=== PATIENT | female | born 1955 | race Caucasian/White ===

== ENCOUNTER 2021-11-17 16:37 | Emergency (ER) | payer OTHER, SELFPAY ==
--- NOTE | ~2021-11-17 | XR_ITS ---
EXAMINATION: XR wrist LT min 3V DATE: 11/17/2021 17:18 INDICATION: Anterior distal left forearm pain post fall TECHNIQUE: Posteroanterior, ulnar deviation, oblique, and lateral views of the left wrist were obtain ed. COMPARISON: none FINDINGS: 2 mm ulnar minus variance. Alignment is otherwise normal. No fracture. Mild polyarticular osteoarthri tis involving the majority of the visualized joints at the left hand and wrist. Small amount of ather osclerotic calcific lesion along the ulnar artery. IMPRESSION: 1. 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 No acute osseous abnormality. Reviewed, dictated and finalized at location A. IMPRESSION: 1. 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 No acute osseo us abnormality.
--- NOTE | ~2021-11-17 | XR_ITS ---
EXAMINATION: XR knee RT min 4V DATE: 11/17/2021 17:18 INDICATION: Medial right knee pain post fall TECHNIQUE: Anteroposterior, 2 oblique and crosstable lateral views of the right knee were obtained COMPARISON: 12/21/2004 FINDINGS: Alignment is normal. No fracture. Mild joint space narrowing in the patellofemoral compartment with moderate-sized marginal osteophytes. Joint space in the medial and lateral compartments appear relati vely preserved but could be under estimated on nonweightbearing imaging. There are small marginal ost eophytes in both medial and lateral compartments consistent with at least mild osteoarthritis. Enthes ophytes along the anterior margin of the patella. No joint effusion/layering lipohemarthrosis. Soft t issues are unremarkable. IMPRESSION: 1. No right knee joint effusion or acute osseous abnormalities. 2. At least mild tricompartmental osteoarthritis at the right knee. Reviewed, dictated and finalized at location A.
--- NOTE | 2021-11-17 16:45 | ED.FALL ---
HPI - Fall General Chief Complaint: Extremity Injury, Lower Stated Complaint: Fall Injury Time Seen by Provider: 11/17/21 17:00 Source: patient and RN notes reviewed Mode of arrival: ambulatory Limitations: no limitations History of Present Illness HPI Narrative: 66-year-old female presents with concern for fall. She reports while at work on a concrete driveway she stepped off the edge of the driveway, turned her foot and fell onto her knee. Reports she reached out to catch herself with her hands, hurting her left wrist. She reports her glasses scraped her face, she has an abrasion to her cheek and she bit her lip. She denies any loose teeth, headache. She did not hit her head. She reports she came right here, she denies any intervention such as pain medicine or ice. MD complaint: fall Related Data Home Medications Medication Instructions Recorded Confirmed leflunomide 20 mg tablet 20 mg PO DAILY 11/17/21 11/17/21 prednisone 5 mg tablet 5 mg PO DAILY 11/17/21 11/17/21 Allergies Allergy/AdvReac Type Severity Reaction Status Date / Time iodine Allergy Intermediate Rash Verified 11/17/21 16:51 theophylline Allergy Intermediate Rash Verified 11/17/21 16:51 diphenhydramine Allergy Unknown Hives / Verified 11/17/21 16:51 Red Face hydrocodone Allergy Unknown SEVERE N/V Verified 11/17/21 16:51 terbutaline Allergy Unknown Dyspnea / Verified 11/17/21 16:51 SOB Tetracyclines Allergy Unknown Nausea and Verified 11/17/21 16:51 Vomiting ibuprofen AdvReac Unknown Muscle Verified 11/17/21 16:51 Spasms Contrast Media Allergy Unknown Swelling Uncoded 02/10/19 18:08 Review of Systems Review of Systems: CONSTITUTIONAL: Denies malaise, chills, sweats, or fever. SKIN: Reports abrasion to the right knee and left side of the face. MUSCULOSKELETAL: Reports right knee pain NEUROLOGIC: Denies numbness, weakness All systems reviewed & are unremarkable except as noted in HPI and below PMFSH Past Medical History Medical History (Updated 11/17/21 @ 17:42 by Slime Hinkle NP) Asthma Hypertension Surgical History Surgical History (Updated 04/04/19 @ 12:15 by Larissa Ramirez, STRIPING MACHINE OPERATOR, ) H/O tubal ligation H/O: hysterectomy Hx of tonsillectomy Comments At time of signature, agree with nursing past medical, surgical, social and family history. There is no relevant family history pertinent to the presenting complaint Exam Narrative: GENERAL: Well-appearing, well-nourished, and in no acute distress. HEAD: Normocephalic, atraumatic. EYES: PERRLA, conjunctivae clear NECK: Supple. CHEST: Speaks in full sentences. No respiratory distress. HEART: Regular rate and rhythm. Normal and equal peripheral pulses. EXTREMITIES: Right knee has normal grossly strength and sensation, limited range of motion. Mild edema, ecchymosis. Normal sensation with sensitivity to light touch and pain. No point tenderness. No skin tenting, no devitalized tissue or atrophy, no trophic changes, no obvious deformity, alignment normal, nearby joints and structures intact. Distal pulses palpable and equal bilaterally, skin warm, dry, pink. Capillary refill less than 3 seconds. SKIN: Warm, dry, no rash. Small superficial abrasion to the anterior knee, very superficial abrasion to the left cheek next to the nose, no surrounding erythema, edema, induration. Very small amount of edema to the inner lip without open skin, no other oral injury noted Left wrist, hand and digits of hand have normal strength and sensation. 5/5 strength with digit flexion, extension. Range of motion normal. No clubbing, cyanosis, or edema noted. Left ulnar wrist tenderness. Skin intact. Normal digital cascade with flexion of fingers, median, ulnar and radial nerve intact. Normal sensation of each side of finger. Can perform 'okay' sign, 'cross over finger test of index and middle fingers' and 'thumbs up' sign. No scissoring. Normal thumb opposition. Good capillary refill and rad
[2021-11-17 16:47] VITALS: BP 154/74; PULSE 78; RESP 16; TEMP 36.5; O2SAT 96
== END 2021-11-17 17:47 | disposition home or self-care (01) ==
PROVIDERS: Emergency Provider Nurse Practitioner; PCP Internal Medicine
DX: M25.561 Pain in right knee (principal); M25.532 Pain in left wrist; J45.909 Unspecified asthma, uncomplicated; I10 Essential (primary) hypertension
CPT/HCPCS: 73110; 73564; 99214; G0463

== ENCOUNTER 2022-03-04 17:17 | Emergency (ER) | payer OTHER, SELFPAY ==
[2022-03-04 17:26] VITALS: BP 150/64; PULSE 79; RESP 20; TEMP 36.6; O2SAT 98
--- NOTE | 2022-03-04 19:45 | ED.HA ---
HPI - Headache General Chief Complaint: Headache Stated Complaint: Blood Pressure Problem Time Seen by Provider: 03/04/22 19:49 Source: patient, RN notes reviewed and old records reviewed Mode of arrival: ambulatory Limitations: no limitations History of Present Illness HPI Narrative: 66-year-old female presents to [facility] with complaints of headache since Saturday and has taken Tylenol without relief. She went to the doctor on Saturday and was told that headache was probably related to sinuses. She states that she takes daily Claritin and Flonase and has no facial pressure or increased nasal discharge. At the doctor's office on Saturday he did have a blood pressure check and her pressure was like 150s over 90s. Patient reports and they gave her new blood pressure of Valsartan on the and she took it and slept for 10 hours straight they told her to quit taking it. She reports that she had not been on blood pressure medication for over a year. Patient reports that she has lost some weight with use of Ozempic. She reports that she also has recently completed 4 month duration of steroid use for her RA. MD elicited complaint: headache Onset (ago): day(s) (2) Onset description: gradually Location: diffuse Pain scale (0-10): 9 Treatments prior to arrival: acetaminophen Related Data Home Medications Medication Instructions Recorded Confirmed lovastatin 10 mg tablet,extended 10 mg PO DAILY 03/04/22 03/04/22 release 24 hr metformin 500 mg tablet 500 mg DAILY 03/04/22 03/04/22 semaglutide 0.25 mg or 0.5 mg (2 0.25 mg subcut WEEKLY 03/04/22 03/04/22 mg/1.5 mL) subcutaneous pen injector (Ozempic) Allergies Allergy/AdvReac Type Severity Reaction Status Date / Time iodine Allergy Intermediate Rash Verified 03/04/22 18:26 theophylline Allergy Intermediate Rash Verified 03/04/22 18:26 diphenhydramine Allergy Unknown Hives / Verified 03/04/22 18:26 Red Face hydrocodone Allergy Unknown SEVERE N/V Verified 03/04/22 18:26 terbutaline Allergy Unknown Dyspnea / Verified 03/04/22 18:26 SOB Tetracyclines Allergy Unknown Nausea and Verified 03/04/22 18:26 Vomiting ibuprofen AdvReac Unknown Muscle Verified 03/04/22 18:26 Spasms Contrast Media Allergy Unknown Swelling Uncoded 03/04/22 18:26 Review of Systems Review of Systems: CONSTITUTIONAL: Denies fever, chills, or sweats. EYES: Denies visual changes, redness, or discharge. ENT: Denies rhinorrhea, congestion, sore throat, or otalgia. CARDIOVASCULAR: Denies chest pain, palpitations, or edema. RESPIRATORY: Denies cough or dyspnea. GASTROINTESTINAL: Denies abdominal pain, nausea, vomiting, or diarrhea. GENITOURINARY: Denies dysuria or hematuria. SKIN: Denies rash or itching. MUSCULOSKELETAL: Denies back pain, joint pain, or myalgia. NEUROLOGIC: Reports diffuse headache,no numbness, or weakness, denies any dizziness PSYCHIATRIC: Denies anxiety or depression. All systems reviewed & are unremarkable except as noted in HPI and below PMFSH Past Medical History Medical History Asthma Breast cancer Fibromyalgia Hypertension Osteoporosis Rheumatoid arthritis Scleroderma Surgical History Surgical History H/O breast surgery Breast cancer 1995 H/O tubal ligation 1980 H/O: hysterectomy 1988 History of dilatation and curettage [id number] and 1986 History of hand surgery CTR and broken hand in 1985 History of nasal surgery 11/21/1995 Hx of tonsillectomy 1977 Family History Family History Other Asthma Cerebrovascular accident Diabetes mellitus HLD (hyperlipidemia) Heart disease Hypertension Social History Social History Smoking status: Never smoker Alcohol intake: never Substance use type: does not use Current Housing: Dc
[2022-03-04 19:49] VITALS: BP 136/84
== END 2022-03-04 20:04 | disposition home or self-care (01) ==
PROVIDERS: Emergency Provider Registered Nurse; PCP Internal Medicine
DX: R51.9 Headache, unspecified (principal); I10 Essential (primary) hypertension; Z85.3 Personal history of malignant neoplasm of breast; J45.909 Unspecified asthma, uncomplicated
CPT/HCPCS: 99213; G0463

== ENCOUNTER 2024-04-06 13:48 | Emergency (ER) | payer OTHER, SELFPAY ==
[2024-04-06 13:52] VITALS: BP 146/69; PULSE 96; RESP 20; TEMP 36.6; O2SAT 99
--- NOTE | 2024-04-06 14:54 | ED_ITS ---
HPI - Extremity Problem General Chief complaint: Extremity Problem,Nontraumatic Stated complaint: right thumb pain thru wrist Time Seen by Provider: 04/06/24 14:44 Source: patient and RN notes reviewed Mode of arrival: ambulatory Limitations: no limitations History of Present Illness HPI Narrative: Patient presents today complaining of pain to the right thumb that radiates to the wrist times 10 days. Denies injury, trauma, fall. Denies numbness or tingling. Pain increases significantly with gripping. She currently rates her pain 8/10 and has been using a brace and taking ibuprofen without much relief. Patient has history of rheumatoid arthritis. Related Data Home Medications ?Medication ?Instructions ?Recorded ?Confirmed ?Last Taken ?Type metformin 500 mg tablet 500 mg DAILY 03/04/22 08/27/22 Unknown History amlodipine 5 mg tablet mg 04/06/24 Unknown History leflunomide 20 mg tablet mg 04/06/24 Unknown History prednisone 5 mg tablet mg 04/06/24 Unknown History Allergies Allergy/AdvReac Type Severity Reaction Status Date / Time iodine Allergy Intermediate Rash Verified 01/11/23 10:57 theophylline Allergy Intermediate Rash Verified 01/11/23 10:57 diphenhydramine Allergy Unknown Hives / Verified 01/11/23 10:57 Red Face hydrocodone Allergy Unknown SEVERE N/V Verified 01/11/23 10:57 terbutaline Allergy Unknown Dyspnea / Verified 01/11/23 10:57 SOB Tetracyclines Allergy Unknown Nausea and Verified 01/11/23 10:57 Vomiting ibuprofen AdvReac Unknown Muscle Verified 01/11/23 10:57 Spasms Contrast Media Allergy Unknown Swelling Uncoded 01/11/23 10:57 Review of Systems Review of Systems: CONSTITUTIONAL: Denies body aches, fever, chills, or sweats. EYES: Denies visual changes, redness, or discharge. ENT: Denies rhinorrhea, congestion, sore throat, or otalgia. CARDIOVASCULAR: Denies chest pain, palpitations, or edema. RESPIRATORY: Denies cough or dyspnea. GASTROINTESTINAL: Denies abdominal pain, nausea, vomiting, or diarrhea. GENITOURINARY: Denies dysuria or hematuria. SKIN: Denies rash, itching, or wounds. MUSCULOSKELETAL: Denies back pain. + right thumb pain NEUROLOGIC: Denies headache, numbness, tingling, or weakness. PSYCH: Denies depression or anxiety. [facility] Past Medical History Medical History Effusion of knee joint Left knee DJD Rheumatoid arthritis Breast cancer Fibromyalgia Osteoporosis Scleroderma Right knee DJD Asthma Hypertension Surgical History Surgical History H/O breast surgery Breast cancer 1995 History of nasal surgery 11/21/1995 History of dilatation and curettage [id number] and 1986 History of hand surgery CTR and broken hand in 1985 Hx of tonsillectomy 1977 H/O tubal ligation 1980 H/O: hysterectomy 1988 Family History Family History Other Asthma Cerebrovascular accident Diabetes mellitus HLD (hyperlipidemia) Heart disease Hypertension Social History Social History Smoking status: Never smoker Alcohol intake: never Substance use type: does not use Current Housing: Decline to Answer Concerned About Future Housing: Decline to Answer Difficulty Paying Gas/Electric Bills: Decline to Answer Difficulty Paying for Meds: Decline to Answer Currently Unemployed: Decline to Answer Education: Decline to Answer Difficulty w/ Childcare or Family Care: Decline to Answer Occupation/Education: occupation Gender identity (if verbalized by the patient): Female Comments At time of signature, I have reviewed and agree with nursing past medical, surgical, social and family history unless otherwise noted. Please see nursing chart for further information. There is no relevant family history pertinent to the presenting complaint Exam Narrative: GENERAL: Well-appearing, well-nourished, and in no acute distress. HEAD: Normocephalic, atraumatic. EYES: EOMI. No redness or drainage. Conjunctivae normal. ENT: Mucous membranes pink and moist. NECK: Normal AROM. CHEST: No respiratory distress. EXTREMITIES: Right thumb: Tenderness to the interphalangeal joint extending to the wrist. Mild edema to this area as well. No erythema or ecchymosis noted. Distal sensation intact. Capillary refill normal. SKIN: Warm, dry, no rash. Capillary refill normal. Normal skin turgor. NEURO: No focal deficits. Alert and oriented x3. Gait steady. PSYCH: Normal affect. No signs of depression or anxiety. Course Course Level of Care: Express Care Visit Vital Signs Vital signs: Vital Signs Temperature 97.9 F 04/06/24 13:52 Pulse Rate 96 04/06/24 13:52 Respiratory Rate 20 04/06/24 13:52 Blood Pressure 146/69 H 04/06/24 13:52 Pulse Oximetry 99 04/06/24 13:52 Oxygen Delivery Room Air 04/06/24 13:52 Temperature 97.9 F 04/06/24 13:52 Pulse Rate 96 04/06/24 13:52 Respiratory Rate 20 04/06/24 13:52 Blood Pressure 146/69 H 04/06/24 13:52 Pulse Oximetry 99 04/06/24 13:52 Oxygen Delivery Room Air 04/06/24 13:52 Reviewed MDM - Extremity (Nontraumatic) MDM Narrative Medical decision making narrative: Patient's symptoms are due to rheumatoid arthritis flare versus tendinitis as she has not had any traumatic injury or trauma to the area. Patient takes 5 mg of prednisone every other day for her RA. Recommend increasing prednisone to 10-15 mg daily for the next 3-5 days. Offered patient new prescription for this. She states she has plenty at home that she can take. She has an appointment with her disease management nurse in 2 weeks that she can follow-up if symptoms persist. Differential Diagnosis Differential diagnosis: Likely other (Rheumatoid arthritis flare, tendinitis, osteoarthritis) Critical Care Time Critical Care Time Critical Care Time: No Discharge Plan Discharge Clinical Impression: Pain of right thumb Patient Disposition: Home, Self-Care Condition: Stable Additional Instructions: Please increase your prednisone to 10-15 mg daily for the next 3-5 days to help with your discomfort. Wear your brace for comfort as well. Follow-up with orthopedics or your disease management nurse if symptoms persist. Your blood pressure was elevated above 120/80 today at Urgent Care. This puts you above the threshold for follow up. Please schedule a followup visit with your personal physician as soon as possible, for further evaluation and treatment. Even blood pressure exceeding 120/80 may indicate pre-hypertension. Patient Language: Ivorian Prescriptions: No Action metformin 500 mg Tablet 500 mg DAILY prednisone 5 mg tablet amlodipine 5 mg tablet leflunomide 20 mg tablet Follow-up/Referrals: Dianna,MD Gwendolyn [Primary Care Provider] - Time of Disposition: 14:59
== END 2024-04-06 15:03 | disposition home or self-care (01) ==
PROVIDERS: Emergency Provider Nurse Practitioner; PCP Internal Medicine
DX: M79.644 Pain in right finger(s) (principal); I10 Essential (primary) hypertension; M06.9 Rheumatoid arthritis, unspecified; Z85.3 Personal history of malignant neoplasm of breast; Z79.899 Other long term (current) drug therapy
CPT/HCPCS: 99212; G0463

== ENCOUNTER 2025-01-11 13:11 | Emergency (ER) | payer MEDICARE, SELFPAY ==
--- OUTSIDE RECORDS SUMMARY | 2024-04-20 08:45 | XMS_ITS ---
Author Organization [facility] mitch Address [email or web address] [facility] [address] [place] [address] Care Team Providers Care Greaser Helper Name Role Phone Dianna BOYKIN, Gwendolyn Primary Care Provider Beatriz Orr Unavailable [phone] REASON FOR VISIT yd/3 month follow up/flc Encounters Encounter Location Date Provider Diagnosis [facility] [address] [facility] [address] [place] [address] 04/20/2024 Beatriz Sarkar Plan Of Treatment Next Appt Details Provider Name:Beatriz Sarkar, 01/15 11:00:00 AM, [email or web address] [facility] [address], [place], [address], Progress Notes * Rolanda BLAKELYOB:1955 (69 yo F)Acc No.[id number]:04/20/2024 Progress Notes Patient: Sindi KABA Appointment Provider: Jeremiah SARKAR MD :1955 A ge:68 Y S ex:Female Date:04/20/2024 Address:[address], [address], [facility] Pcp:Gwendolyn Bustamante MD Subjective: * Chief Complaints: * 1 . Yd/3 month follow up/flc. * Medical History: Objective: * Vitals: Assessment: Plan: * Treatment: * Billing Information: * Visit Code: * Procedure Codes: * Electronic signature of Beatriz Sarkar MD on 01/11/2025 at 01:28 PM CDT Sign off status: Pending * Appointment Provider: Jeremiah SARKAR MD Date: 0 04/20/2024 Generated for [place] amaya/Maria Eugenia/Wes on: 0 01/11/2025 01:28 PM CDT
[2025-01-11 13:17] VITALS: BP 140/69; PULSE 84; RESP 20; TEMP 36.7; O2SAT 99
--- NOTE | 2025-01-11 13:18 | ED.EAR ---
HPI - Ear Problem General Chief complaint: Ear Stated complaint: Ear Problem Time Seen by Provider: 01/11/25 13:26 Source: patient and RN notes reviewed Mode of arrival: ambulatory Limitations: no limitations History of Present Illness HPI Narrative: 69-year-old female with history of rheumatoid arthritis presents with concern for right ear pain for 1 month. She reports she has seen her doctor, they gave her Flonase but it is not helping. She reports the pain is radiating down to her throat. She denies drainage from the ear. She reports chronic sinus problems, she takes Zyrtec. She is reporting over 1 week history of sinus pressure and pain. MD Complaint: ear pain Related Data Home Medications ?Medication ?Instructions ?Recorded ?Confirmed ?Last Taken ?Type metformin 500 mg tablet 500 mg DAILY 03/04/22 08/27/22 Unknown History amlodipine 5 mg tablet mg 04/06/24 Unknown History leflunomide 20 mg tablet mg 04/06/24 Unknown History azelastine 137 mcg (0.1 %) nasal intranasal 01/11/25 Unknown History spray cetirizine .ROUTE 01/11/25 Unknown History fluticasone propionate intranasal 01/11/25 Unknown History losartan 25 mg tablet mg 01/11/25 Unknown History lovastatin 20 mg tablet mg 01/11/25 Unknown History metformin 1,000 mg tablet mg 01/11/25 Unknown History tizanidine 4 mg tablet mg 01/11/25 Unknown History Allergies Allergy/AdvReac Type Severity Reaction Status Date / Time iodine Allergy Intermediate Rash Verified 01/11/25 13:22 theophylline Allergy Intermediate Rash Verified 01/11/25 13:22 diphenhydramine Allergy Unknown Hives / Verified 01/11/25 13:22 Red Face hydrocodone Allergy Unknown SEVERE N/V Verified 01/11/25 13:22 latex Allergy Unknown Unknown Verified 01/11/25 13:22 terbutaline Allergy Unknown Dyspnea / Verified 01/11/25 13:22 SOB Tetracyclines Allergy Unknown Nausea and Verified 01/11/25 13:22 Vomiting ibuprofen AdvReac Unknown Muscle Verified 01/11/25 13:22 Spasms Contrast Media Allergy Unknown Swelling Uncoded 01/11/23 10:57 Review of Systems Review of Systems: CONSTITUTIONAL: Denies malaise, chills, sweats, or fever. EYES: Denies visual changes, redness, or discharge. ENT: Reports rhinorrhea, congestion, sinus pain, and sore throat. Reports right ear pain CARDIOVASCULAR: Denies chest pain, palpitations, or edema. RESPIRATORY: Denies cough. Denies dyspnea. GASTROINTESTINAL: Denies abdominal pain, nausea, vomiting, diarrhea SKIN: Denies rash or itching. MUSCULOSKELETAL: Denies myalgia. NEUROLOGIC: Denies headache. All systems reviewed & are unremarkable except as noted in HPI and below PMFSH Past Medical History Medical History Effusion of knee joint Left knee DJD Rheumatoid arthritis Breast cancer Fibromyalgia Osteoporosis Scleroderma Right knee DJD Asthma Hypertension Surgical History Surgical History H/O breast surgery Breast cancer 1995 History of nasal surgery 11/21/1995 History of dilatation and curettage [id number] and 1986 History of hand surgery [facility] and broken hand in 1985 Hx of tonsillectomy 1977 H/O tubal ligation 1980 H/O: hysterectomy 1988 Family History Family History Other Asthma Cerebrovascular accident Diabetes mellitus HLD (hyperlipidemia) Heart disease Hypertension Social History Social History Smoking status: Never smoker Alcohol intake: never Substance use type: does not use Current Housing: Decline to Answer Concerned About Future Housing: Decline to Answer Difficulty Paying Gas/Electric Bills: Decline to Answer Difficulty Paying for Meds: Decline to Answer Currently Unemployed: Decline to Answer Education: Decline to Answer Difficulty w/ Childcare or Family Care: Decline to Answer Occupation/Education: occupation Gender identity (if verbalized by the patient): Female Comments At time of signature, agree with nursing past medical, surgical, social and family history. There is no relevant family history pertinent to the presenting complaint Exam Narrative: GENERAL: Well-appearing, well-nourished, and in no acute distress. HEAD: Normocephalic EYES: PERRLA, conjunctivae clear ENT: Nares clear, turbinates edematous. Mucous membranes moist. TM pearly montejo with dull light reflex bilaterally; no tragal tenderness, EAC unremarkable. No post or pre-auricular erythema, induration, or warmth noted. Oropharynx not erythematous without lesions. Tonsils not enlarged and without exudate, no drooling, no hoarseness, no trismus, uvula midline. NECK: Supple. No lymphadenopathy CHEST: Clear to auscultation, breath sounds equal. No wheezing, rhonchi, rales, or stridor. No respiratory distress, speaks in full sentences. HEART: Regular rate and rhythm. No murmur heard. SKIN: Warm, dry, no rash. NEURO: Alert and oriented x3. PSYCH: Normal mood and affect Course Course Emergency Course: Patient is aware of diagnosis, understands and agrees to treatment plan. Anticipatory guidance given. Patient agrees to follow-up as directed and is aware of reasons to seek care at the emergency department. Portions of this record may have been created with voice recognition software Level of Care: Express Care Visit Vital Signs Vital signs: Reviewed. Medical Decision Making MDM Narrative Medical decision making narrative: I evaluated this in the [facility] care. History is obtained from patient who is an independent historian and physical exam was performed.? Available medical records were reviewed. ? Exam findings and relevant testing show no acute concerns or changes; patient is non-toxic appearing and is in no distress. Differential diagnosis considered: Mcfarland virus, strep pharyngitis, allergic rhinitis, upper respiratory tract infection, sinusitis, rhinosinusitis, nasopharyngitis. viral pharyngitis, otitis media, otitis externa, otitis effusion, pre/post auricular cellulitis, mastoiditis, cerumen impaction, foreign body. Exam findings show no acute concerns or changes; patient is non-toxic appearing and is in no distress. Patient is appropriate for outpatient treatment and follow-up. ? Differential diagnosis and treatment plan were discussed with the patient. Patient agrees with discussion and after shared medical decision making agrees with plan of care. All questions were answered to the patient's satisfaction. Patient is appropriate for outpatient treatment and follow-up. Critical Care Time Critical Care Time Critical Care Time: No Discharge Plan Discharge Clinical Impression: Chronic sinusitis Patient Disposition: Home Condition: Stable Instructions: Antibiotic Form, Sinusitis (ED) Additional Instructions: Take medications as prescribed Nonprescription pain medications, such as acetaminophen (eg, Tylenol) or ibuprofen (eg, Motrin, Advil), are recommended for pain. Flushing the nose and sinuses with a saline solution several times per day has been proven to decrease pain associated with congestion and shorten the duration of symptoms. Nasal steroids (such as Flonase, 2 sprays in each nostril daily) can help to reduce swelling inside the nose, usually within two to three days. These drugs have few side effects and relieve symptoms in most people. Medications to thin secretions (such as guaifenesin) may help to clear mucus. Please follow-up with your primary care doctor in the next 1-2 days. If you cannot follow-up with your primary care doctor please go to the ED for any urgent issues. If you have any worsening of symptoms or any other concerns please go to the ED immediately. Patient Language: Amharic Prescriptions: New amoxicillin-pot clavulanate 875-125 mg tablet 1 tablet PO Q12H 10 Days Qty: 20 0RF prednisone 20 mg tablet 40 mg PO DAILY 5 Days Qty: 10 0RF No Action tizanidine 4 mg tablet metformin 1,000 mg tablet losartan 25 mg tablet azelastine 137 mcg (0.1 %) spray,non-aerosol INTRANASAL lovastatin 20 mg tablet cetirizine [Zyrtec] .ROUTE fluticasone propionate [Flonase Allergy Relief] intranasal metformin 500 mg Tablet 500 mg DAILY amlodipine 5 mg tablet leflunomide 20 mg tablet Follow-up/Referrals: Dianna,MD Gwendolyn [Primary Care Provider] Time of Disposition: 13:35
--- OUTSIDE RECORDS SUMMARY | 2025-01-11 13:28 | XMS_ITS | Clinical Summary ---
Author Organization [facility] Address [address] [place] [address] Phone Care Team Providers Care Shop Manager Name Role Phone Gwendolyn Bustamante MD Primary Care Provider [phone] Allergies Active Allergy Reactions Criticality Noted Date Comments Diphenhydramine Hives 04/16/2016 Codeine Vomiting 04/16/2016 Erythromycin Vomiting 04/16/2016 Hydrocodone Vomiting 04/16/2016 Iodine Other (see Comments) 04/16/2016 Medications metroNIDAZOLE (FLAGYL) 500 MG Tablet Take 1 Tab by mouth 2 times daily. 14 Tab 0 04/16/2016 Active ondansetron (ZOFRAN) 4 MG Tablet Take 1 Tab by mouth every 8 hours as needed for Nausea. 10 Tab 0 04/16/2016 Active Social History Tobacco Use Types Packs/Day Years Used Date Smoking Tobacco: Never Alcohol Use Standard Drinks/Week Comments No 0 (1 standard drink = 0.6 oz pur e alcohol) Comments No Sex and Gender Information Value Date Recorded Sex Assigned at Not on file Legal Sex Female 4:44 PM COUNSELING SPECIALIST Gender Identity Not on file Sexual Orientation Not on file Last Filed Vital Signs Vital Sign Reading Time Taken Comments Blood Pressure 103/63 04/16/2016 11:30 PM COUNSELING SPECIALIST Pulse 86 04/16/2016 11:30 PM COUNSELING SPECIALIST Temperature 37.9 C (100.2 F) 04/16/2016 9:22 PM COUNSELING SPECIALIST Respiratory Rate 21 04/16/2016 11:30 PM COUNSELING SPECIALIST Oxygen Saturation 97% 04/16/2016 11:30 PM COUNSELING SPECIALIST Inhaled Oxygen Concentration - - Weight 90.7 kg (200 lb) 04/16/2016 9:22 PM COUNSELING SPECIALIST Height 160 cm (5' 3) 04/16/2016 9:22 PM COUNSELING SPECIALIST Body Mass Index 35.43 04/16/2016 9:22 PM COUNSELING SPECIALIST Plan of Treatment Not on file Insurance [facility] Care Teams Shop Manager Relationship Specialty Start Date End Date Gwendolyn Bustamante MD [address] [place] [address] PCP - General Internal Medicine 04/16/16
--- OUTSIDE RECORDS SUMMARY | 2025-01-11 13:29 | XMS_ITS | Clinical Summary ---
Author Organization [facility] Address [address] [place] [address] Care Team Providers Care Animal Cruelty Investigator Name Role Phone Gwendolyn Bustamante MD Primary Care Provider [phone] Allergies Active Allergy Reactions Criticality Noted Date Comments Codeine Vomiting Low 04/16/2016 Diphenhydramine Hives Medium 04/16/2016 Erythromycin Vomiting Medium 04/16/2016 Hydrocodone Vomiting Low 04/16/2016 Iodine Rash Medium 04/16/2016 Latex Rash Medium 11/05/2018 Pregabalin Unknown Low 11/04/2018 Medications metFORMIN (GLUCOPHAGE) 1,000 mg tablet metformin 1,000 mg tablet TAKE 1 TABLET BY MOUTH ONCE A DAY Active esomeprazole DR (NexIUM) 20 mg capsule daily Active lancets misc Accu-Chek Softclix Lancets Active lovastatin (MEVACOR) 20 mg tablet lovastatin 20 mg tablet TAKE 1 TABLET BY MOUTH AT BEDTIME 9 Active loratadine (CLARITIN) 10 mg tablet Take 1 tablet (10 mg total) by mouth daily Active vitamin B complex capsule Take 1 capsule by mouth daily Active ascorbic acid (VITAMIN C) 500 mg tablet,chewable Take 1 tablet/chew tab (500 mg total) by mouth daily Active leflunomide (ARAVA) 20 mg tablet Take 20 mg by mouth daily for 30 days 2 Active acetaminophen-c odeine (TYLENOL with CODEINE #3) 300-30 mg per tablet Take by mouth every 6 (six) hours as needed 2 Active predniSONE (DELTASONE) 5 mg tablet Take 5 mg by mouth daily for 30 days 2 Active multivitamin capsule Take 1 capsule by mouth daily Active lansoprazole (PREVACID) 15 mg capsule Take 1 capsule (15 mg total) by mouth daily Active vitamin E (AQUASOL E) 1,000 unit capsule Take 1 capsule (1,000 Units total) by mouth daily Active ondansetron (ZOFRAN) 4 mg tablet Take 1 tablet (4 mg total) by mouth every 6 (six) hours 12 tablet 4 Active Active Problems Problem Noted Date Diagnosed Date Decreased hearing of both ears 09/30/2024 Assessment & Plan (09/30/2024 5:18 PM CDT): Moderate symmetric hearing loss, consider hearing aids Seasonal allergic rhinitis due to pollen 025 Assessment & Plan (09/30/2024 5:17 PM CDT): Blood allergy testing Obtain images from [facility] Paresthesia of lower extremity 06/11/2023 Iron deficiency 06/11/2023 Shortness of breath 05/12/2020 Essential hypertension 05/12/2020 GERD (gastroesophageal reflux disease) Hyperlipidemia 05/12/2020 Type 2 diabetes mellitus, [facility] long-term current use of insulin 05/12/2020 Acute cystitis without hematuria 05/12/2020 Elevated LFTs 05/12/2020 Surgical History Surgery Date Site/Laterality Comments TONSILLECTOMY 04/15/1977 - 04/14/1978 TUBAL LIGATION 04/15/1980 - 04/14/1981 CARPAL TUNNEL RELEASE 04/15/1985 - 04/14/1986 DILATION AND CURETTAGE OF UTERUS 04/15/1985 - 04/14/1986 DILATION AND CURETTAGE OF UTERUS 04/15/1988 - 04/14/1989 HYSTERECTOMY 04/15/1988 - 04/14/1989 NASAL SINUS SURGERY 11/21/1995 BREAST SURGERY 04/15/1995 - 04/14/1996 BREAST LUMPECTOMY 04/15/1988 - 04/14/1989 Right age 30s BREAST BIOPSY 09/18/2022 Right Medical History Medical History Date Comments Fibromyalgia, primary Sinusitis Breast cancer (HCC) 1988 no radiation /chemo Fibrocystic breast Asthma Diabetes mellitus Gastric reflux Rheumatoid arthritis (HCC) Family History Medical History Relation Name Comments Heart cause of Brother 1 Heart cause of Brother 2 Fibromyalgia Daughter Osteoarthritis Daughter Heart cause of Father Osteoarthritis Father Breast cancer Father's Sister Crohn's disease Mother Heart cause of Mother Osteoarthritis Mother Alcohol abuse Other Arthritis Other Cancer Other Clotting disorder Other Diabetes Other Heart disease Other Hypertension Other Mental illness Other Stroke Other Breast cancer Paternal cousin Breast cancer Sister 1 Pancreatitis Sister 1 Muscle problems Sister 2 Cancer Sister 3 Pancreatic cancer Sister 3 Fibromyalgia Son Ovarian cancer Neg Hx Thyroid cancer Neg Hx Relation Name Status Comments Brother 1 Brother 2 Cousin Daughter Father Father's Sister Mother Other Paternal cousin Sister 1 Sister 2 Sister 3 Son Social History Tobacco Use Types Packs/Day Years Used Date Smoking Tobacco: Never Smokeless Tobacco: Never Tobacco Cessation:Counseling Given: Not Answered Alcohol Use Standard Drinks/Week Comments Never 0 (1 standard drink = 0.6 oz pur e alcohol) AUDIT-C Answer Date Recorded Frequency of Alcohol Consumption Never 05/12/2020 Average Number of Drinks Not on file 021 Frequency of Binge Drinking Not on file 04/16 Personal Safety Answer Date Recorded Have you ever been in or are you currently in a harmful physical or emotional relationship or is someone making you feel afraid or unsafe? Denies 04/14/2024 Comments No Sex and Gender Information Value Date Recorded Sex Assigned at Not on file Legal Sex Female 7:45 PM DIRECTIONAL BORE OPERATOR Gender Identity Not on file Sexual Orientation Not on file Obstetrics History Para Term AB IAB SAB Ectopic Multiple Livin g Live Births 2 2 2 Date Outcome GA Total Labor Labor/2nd/3rd Weight Sex Type Anes PTL Marlene A1 A5 Name Clin Term Term Last Filed Vital Signs Vital Sign Reading Time Taken Comments Blood Pressure 153/78 09/30/2024 9:02 AM CDT Pulse 78 09/30/2024 9:02 AM CDT Temperature 37.1 C (98.8 F) 04/14/2024 10:07 PM DIRECTIONAL BORE OPERATOR Respiratory Rate 18 09/30/2024 9:02 AM CDT Oxygen Saturation 96% 09/30/2024 9:02 AM CDT Inhaled Oxygen Concentration - - Weight 80.7 kg (178 lb) 10/10/2024 8:02 AM CDT Height 160 cm (5' 3) 10/10/2024 8:02 AM CDT Body Mass Index 31.53 10/10/2024 8:02 AM CDT Plan of Treatment Health Maintenance Due Date Last Done Comments Albumin Creatinine Ratio, Urine 1956 Colon Cancer Screening-Colonoscopy 1956 Depression Screening 1956 Hemoglobin A1C 1956 Osteoporosis Screening-Bone Density Scan 1956 Dilated Eye Exam 1956 Foot Exam 1956 Lipid Panel 1956 Hepatitis B Screening 1974 Pneumococcal vaccine 65+ (1 of 2 - PCV) 06/19/1975 Zoster Vaccine (1 of 2) 2006 Fall Risk Assessment 05/13/2021 05/13/2020 Well Visit 65+ 2021 Covid-19 Vaccine (4 - 2024-2 6 season) 2024 02/24/2021, 07/05/2020, 06/14/2020 Influenza Vaccine (#1) 2024 , 01/25/2021, 01/29/2020, Additional history exists DTaP/Tdap/Td Vaccine (2 - Td or Tdap) 01/25/2025 01/25/2015 eGFR 07/07/2025 07/07/2024, 03/17, 01/22/2024, Additional history exists Breast Cancer Screening-Mammogram 10/10/2025 10/10/2024, 04/11/2023, 02/10/2022, Additional history exists Hepatitis C Screening Completed 05/13/2020 Medical Devices Implanted Type Area Paper Reeler Device Identifier Shelf Expiration Date Model / Serial / Lot Bard Peripheral Vascular Ultraclip Bard 17ga 10cm 2 Trigger Permanent Ultrasound [id number] - [id number] - [id number] Implanted:Qty: 1 on 09/18/2022 by Andrae Pina MD at [facility] Breast Right: Breast Bard Peripheral Vascular 01/11/2024 [id number] / [id number] Description:Implanted Right Breast 9:00 area 5-6cmfn Procedures Procedure Name Priority Date/Time Associated Diagnosis Comments SCREENING MAMMOGRAM BILATERAL W BRADEN Schedule Routine, Read Routine (OP Routine) 10/10/2024 8:09 AM CDT Personal history of malignant neoplasm of breast Encounter for screening mammogram for malignant neoplasm of breast EGFR Routine 07/07/2024 1:00 PM CDT HEPATITIS PANEL, ACUTE Routine 05/13/2020 12:26 AM DIRECTIONAL BORE OPERATOR from Last 3 Months or Most Recently Relevant to Health Maintenance Results * Screening Mammogram Bilateral W Braden (10/10/2024 8:09 AM CDT) Anatomical Region Laterality Modality Breast Bilateral Mammography Impressions 10/12/2024 8:28 PM CDT Bilateral No evidence of malignancy in either breast. OVERALL BI-RADS FINAL ASSESSMENT: 1 - Negative RECOMMENDATION: Recommend bilateral annual screening mammography. Narrative 10/12/2024 8:28 PM CDT EXAMINATION: Screening Mammogram Bilateral W Braden: 10/10/2024 COMPARISON: Relevent prior studies available at the time of interpretation were reviewed, including the most recent mammogram on: 04/11/2023. TECHNIQUE: Mammography was performed with 2D and digital breast tomosynthesis (DBT) images. CAD was utilized. BREAST PARENCHYMAL COMPOSITION: There are scattered areas of fibroglandular density. FINDINGS: Bilateral There is no suspicious mass, calcification, or architectural distortion in either breast.There is a post biopsy clip in the right breast. us Gwendolyn Bustamante MD IMG MAMMO PROCEDURES Final Re sult * eGFR (07/07/2024 1:00 PM CDT) eGFR >90 >=60 mL/min/1. 73 m2 Comment: Interpretive Data Reference Interval Normal >/= 90 mL/min/1.73m2 Mildly decreased* 60 - 89 mL/min/1.73m2 Mildly to moderately decreased 45 - 59 mL/min/1.73m2 Moderately to severely decreased 30 - 44 mL/min/1.73m2 Severely decreased 15 - 29 mL/min/1.73m2 Kidney Failure < 15 mL/min/1.73m2 *Relative to young adult level Estimated glomerular filtration rate is determined by the 2020 CKD-EPI equation recommended by the National Kidney Foundation (A Unifying Approach to GFR Estimation: Recommendations of the NKF-ASK Task Force on Reassessing the Inclusion of Race in Diagnosing Kidney Disease, JASN 2020). The CKD-EPI equation should not be used for patients with unstable renal function and has not been validated in children and those over 70. Current interpretive data was last reviewed 2021. Blood 07/07/2024 1:00 PM CDT 07/07/2024 3:19 PM CDT us Beatriz Rosa MD LAB BLOOD ORDERABLES Final Resul t [facility] [address] Department of Laboratories [place], [place] [id number] * Hepatitis panel, acute (05/13/2020 12:26 AM DIRECTIONAL BORE OPERATOR) Hep A IgM Nonreactive Nonreactive [facility] ([facility]) Comment: Interpretive Data: If Hep A IgM Ab is reported as Equivocal, a new sample should be drawn in two weeks for testing. Current interpretive data was last revised on 19. Testing performed by: [address] [address] Hep B core IgM Nonreactive Nonreactive C [facility] ([place]IO) Comment: Interpretive Data If HepB Core IgM Ab is reported as Equivocal, a new sample should be drawn in two weeks for testing. Current interpretive data was last revised on 19. Testing performed by: [facility], [address] [place] [address]., [id number] Hep C Ab Nonreactive Nonreactive [facility] ([place]) Comment: Interpretive Data Nonreactive: Antibodies to HCV not detected. Does NOT exclude the possibility of recent exposure to HCV. Equivocal: Equivocal for HCV antibodies. Supplemental molecular testing will be automatically performed to determine infection status in accordance with current CDC screening recommendations. Reactive: Positive for HCV antibodies. This may represent current or past HCV infection. Supplemental molecular testing will be automatically performed to determine current infection status in accordance with current CDC screening recommendations. Interpretive data was last revised on 2019. Testing performed by: [facility], [address] [place] [address]., [id number] HepBsAg Nonreactive Nonreactive [facility] ([place]SE [place]) Comment:Testing performed by : [facility], [address] [place] [address]., [id number] Blood specimen (specimen) 05/13/2020 12:26 AM DIRECTIONAL BORE OPERATOR 05/13/2020 12:45 PM DIRECTIONAL BORE OPERATOR Jazmyne South MD LAB MICROBIOLOGY - GENERAL OR DERABLES Final Result [facility] ([place]SE [place]) [address] [facility] Department [place] [address] from Last 3 Months or Most Recently Relevant to Health Maintenance Insurance [employer] OPEN ACCESS [facility] MEDICARE [employer] [facility] Address: [address] [address] [place] [address] [facility] MEDIC[facility] [employer] [facility] Address: [facility] [address] [place] [address] Advance Directives For more information, please contact: [phone] * Full Code (Latest Code Status on File) Date Activated Date Inactivated Comments 05/12/2020 2:49 PM 05/13/2020 9:22 PM Care Teams Animal Cruelty Investigator Relationship Specialty Start Date End Date Gwendolyn Bustamante MD [address] [place] [address] PCP - General Internal Medicine 07/31/18
--- OUTSIDE RECORDS SUMMARY | 2025-01-11 13:29 | XMS_ITS | Patient Health Record ---
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 Name Role Phone Dianna BOYKIN, Gwendolyn Primary Care Provider Bárbara Rosa Beatriz Unavailable [phone] Allergies Allergen (clinical drug ingredient) Drug/Non Drug Allergy documented on EMR Reaction Allergy Type Onset Date Status diphenhydramine diphenhydrAMINE HCl Unknown Drug Allergy 1 04/21/2019 Active erythromycin Erythromycin Unknown Drug Allergy 02/20/2020 Active Iodine Unknown Drug Allergy 02/20/2020 Active pregabalin Lyrica Unknown Drug Allergy 02/20/2020 Activ e Hydrocodone-Chlorphe ni ramine Unknown Drug Allergy 02/20/2020 Active codeine Codeine Unknown Drug Allergy 02/20/2020 Active Latex Latex Unknown Allergy 02/20/2020 Active Results Component Value Reference Range Notes CBC w auto diff Reviewed date:01/22/2024 09:39:51 PM Interpretation:Lab Result Generalized Performing Lab:[facility] , [address] [facility]. [facility] [address] Notes/Report: WBC 5.3 3.8-9.9 K/cumm Hgb 13.1 11.9-15.5 g/dL Hct 41.2 35.6-45.5 % Platelet Ct 303 150-400 K/cumm MPV 11.3 9.1-12.3 fL RBC 4.35 3.90-5.20 M/cumm MCV 94.7 81.3-96.4 fL MCH 30.1 27.1-33.3 pg MCHC 31.8 32.3-35.7 g/dL RDW CV 12.3 11.1-14.9 % RDW SD 42.9 35.7-48.1 fL NRBC Abs Auto 0.00 0.00-0.01 K/cumm Comprehensive metabolic pane l (CMP) Reviewed date:01/22/2024 09:39:51 PM Interpretation:Lab Result Generalized Performing Lab:[facility] , [address] [place] [address]. [place] [id number] Notes/Report: Sodium 142 135-145 mmol/L Plasma Potassium 3.8 3.3-4.9 mmol/L Chloride 102 97-110 mmol/L Total CO2 28 22-32 mmol/L Anion Gap 12 2-15 mmol/L BUN 15 6-25 mg/dL Creatinine 0.64 0.60-1.10 mg/dL Glucose 232 70-199 mg/dL Interpretive Data Fasting glucose >/= 126 mg/dl is diagnostic for diabetes. Fasting is defined as no caloric intake for at least 8 hours. Fasting glucose between 100 mg/dl to 125 mg/dl is diagnostic of prediabetes. In a patient with classic symptoms of hyperglycemia or hyperglycemic crisis, a random glucose >/= 200 mg/dl is diagnostic for diabetes. In the absence of unequivocal hyperglycemia, results should be confirmed by repeat testing. The classification and Diagnosis of Diabetes Diabetes Care 202; 46: S19-S40. Current interpretive data was last revised 2022. Total Calcium 9.6 8.5-10.3 mg/dL Total Bilirubin 0.2 0.1-1.2 mg/dL Plasma Total Protein 7.0 6.5-8.5 g/dL Albumin 4.3 3.5-5.0 g/dL Alkaline Phosphatase 110 40-130 Units/L ALT 27 7-45 Units/L AST 20 10-45 Units/L CBC w auto diff Reviewed date:07/07/2024 04:26:03 PM Interpretation:Lab Result Generalized Performing Lab:[facility] , [address] [place] [address]. [place] [id number] Notes/Report: WBC 8.7 3.8-9.9 K/cumm Hgb 13.2 11.9-15.5 g/dL Hct 42.7 35.6-45.5 % Platelet Ct 300 150-400 K/cumm MPV 11.5 9.1-12.3 fL RBC 4.55 3.90-5.20 M/cumm MCV 93.8 81.3-96.4 fL MCH 29.0 27.1-33.3 pg MCHC 30.9 32.3-35.7 g/dL RDW CV 12.4 11.1-14.9 % RDW SD 42.8 35.7-48.1 fL NRBC Abs Auto 0.00 0.00-0.01 K/cumm Comprehensive metabolic pane l (CMP) Reviewed date:07/07/2024 04:26:03 PM Interpretation:Lab Result Generalized Performing Lab:[facility] , [facility]. [facility] [address] Notes/Report: Sodium 139 135-145 mmol/L Plasma Potassium 3.7 3.3-4.9 mmol/L Chloride 101 97-110 mmol/L Total CO2 24 22-32 mmol/L Anion Gap 14 2-15 mmol/L BUN 20 6-25 mg/dL Creatinine 0.59 0.60-1.10 mg/dL Glucose 187 70-199 mg/dL Interpretive Data Fasting glucose >/= 126 mg/dl is diagnostic for diabetes. Fasting is defined as no caloric intake for at least 8 hours. Fasting glucose between 100 mg/dl to 125 mg/dl is diagnostic of prediabetes. In a patient with classic symptoms of hyperglycemia or hyperglycemic crisis, a random glucose >/= 200 mg/dl is diagnostic for diabetes. In the absence of unequivocal hyperglycemia, results should be confirmed by repeat testing. The classification and Diagnosis of Diabetes Diabetes Care 2021; 46: S19-S40. Current interpretive data was last revised 2022. Total Calcium 9.2 8.5-10.3 mg/dL Total Bilirubin 0.3 0.1-1.2 mg/dL Plasma Total Protein 6.9 6.5-8.5 g/dL Albumin 4.0 3.5-5.0 g/dL Alkaline Phosphatase 106 40-130 Units/L ALT 21 7-45 Units/L AST 20 10-45 Units/L X ray : Hip, bilateral Reviewed date:07/13/2024 11:45:21 AM Interpretation: Performing Lab: Notes/Report: eGFR Reviewed date:07/07/2024 04:26:15 PM Interpretation: Performing Lab:[facility] , [address] [facility]. [place] [address] Notes/Report: eGFR >90 >=60 mL/min/1.73 m2 Interpretive Data Reference Interval Normal >/= 90 [...] Current interpretive data was last reviewed 2021. Differential Automated Reviewed date:07/07/2024 04:26:14 PM Interpretation: Performing Lab:[facility] , [address] [facility]. [place] [address] Notes/Report: Neut Abs 5.3 1.5-6.5 K/cumm ImmGran Abs 0.0 0.0-0.1 K/cumm Lymphocyte Abs 2.5 0.8-3.3 K/cumm [place] Abs 0.7 0.2-0.8 K/cumm Eos Abs 0.2 0.0-0.5 K/cumm Baso Abs 0.1 0.0-0.1 K/cumm Neut Pct 60.0 Interpretive Data Percent cell count reference ranges are not reported, since discordance with absolute values may lead to misinterpretation of CBC data. Current Interpretive Data was last revised on 2017. ImmGran Pct 0.5 Interpretive Data Percent cell count reference ranges are not reported, since discordance with absolute values may lead to misinterpretation of CBC data. Current Interpretive Data was last revised on 2017. Lymph Pct 28.1 Interpretive Data Percent cell count reference ranges are not reported, since discordance with absolute values may lead to misinterpretation of CBC data. Current Interpretive Data was last revised on 2017. [place] Pct 8.4 Interpretive Data Percent cell count reference ranges are not reported, since discordance with absolute values may lead to misinterpretation of CBC data. Current Interpretive Data was last revised on 2017. Eos Pct 2.4 Interpretive Data Percent cell count reference ranges are not reported, since discordance with absolute values may lead to misinterpretation of CBC data. Current Interpretive Data was last revised on 2017. Baso Pct 0.6 Interpretive Data Percent cell count reference ranges are not reported, since discordance with absolute values may lead to misinterpretation of CBC data. Current Interpretive Data was last revised on 2017. eGFR Reviewed date:01/22/2024 09:40:20 PM Interpretation: Performing Lab:[facility] , [address] [place] [address]. [place] [address] Notes/Report: eGFR >90 >=60 mL/min/1.73 m2 Interpretive Data Reference Interval Normal >/= 90 [...] Current interpretive data was last reviewed 2021. Differential Automated Reviewed date:01/22/2024 09:40:20 PM Interpretation: Performing Lab:[facility] , [facility] [facility]. [place] [address] Notes/Report: Neut Abs 2.0 1.5-6.5 K/cumm ImmGran Abs 0.0 0.0-0.1 K/cumm Lymphocyte Abs 2.3 0.8-3.3 K/cumm [place] Abs 0.7 0.2-0.8 K/cumm Eos Abs 0.2 0.0-0.5 K/cumm Baso Abs 0.0 0.0-0.1 K/cumm Neut Pct 38.3 Interpretive Data Percent cell count reference ranges are not reported, since discordance with absolute values may lead to misinterpretation of CBC data. Current Interpretive Data was last revised on 2017. ImmGran Pct 0.4 Interpretive Data Percent cell count reference ranges are not reported, since discordance with absolute values may lead to misinterpretation of CBC data. Current Interpretive Data was last revised on 2017. Lymph Pct 44.0 Interpretive Data Percent cell count reference ranges are not reported, since discordance with absolute values may lead to misinterpretation of CBC data. Current Interpretive Data was last revised on 2017. [place] Pct 12.5 Interpretive Data Percent cell count reference ranges are not reported, since discordance with absolute values may lead to misinterpretation of CBC data. Current Interpretive Data was last revised on 2017. Eos Pct 4.2 Interpretive Data Percent cell count reference ranges are not reported, since discordance with absolute values may lead to misinterpretation of CBC data. Current Interpretive Data was last revised on 2017. Baso Pct 0.6 Interpretive Data Percent cell count reference ranges are not reported, since discordance with absolute values may lead to misinterpretation of CBC data. Current Interpretive Data was last revised on 2017. CBC W/DIFF Reviewed date:10/07/2024 12:43:01 PM Interpretation:Lab Result Generalized Performing Lab:[facility], [address] [place] [address], [address] Notes/Report: WBC 6.6 3.5-10.5 10'3/uL RBC 4.34 (Based on docume nted legal sex) 3.80-5.20 10'6/uL HGB 12.8 (Based on docume nted legal sex) 11.6-15.4 g/dL HCT 39.5 (Based on docume nted legal sex) 34.0-45.0 % MCV 91.0 80.0-99.0 fL MCH 29.5 27.0-34.0 pg MCHC 32.4 32.0-35.5 g/dL RDW 12.9 11.0-15.0 % PLT 316 150-400 10'3/uL MPV 11.2 8.8-12.1 fL NRBC's 0.0 0.0 % Absolute NRBCs 0.0 No reference ran ge established 10'3/uL Neutrophils 76.6 34.0-73.0 % Lymphocytes 16.5 15.0-50.0 % Monocytes 5.2 1.0-15.0 % Eosinophils 0.9 0.0-8.0 % Basophils 0.5 0.0-2.0 % Immature Granulocytes 0.3 No defined reference range % Immature Granulocytes (IG) represents automated enumeration of Metamyelocytes, Myelocytes and Promyelocytes when IG is < 5%. Blasts are not included in IG and reported separately if present. Absolute Neutrophils 5.1 1.5-8.0 10'3/uL Absolute Lymphocytes 1.1 1.0-4.0 10'3/uL Absolute Monocytes 0.3 0.2-1.0 10'3/uL Absolute Eosinophils 0.1 0.0-0.6 10'3/uL Absolute Basophils 0.0 0.0-0.3 10'3/uL Absolute Immature Granulocytes 0.0 0.00-0.10 10'3/uL Reference ranges for nonbinary/intersex or unspecified gender patients have not been established. Please refer to the following table for ranges established for cisgender patients and evaluate in the clinical context of the individual patient: [email or web address].nm.org/ge nderx CMP(COMPREHENSIVE METABOLIC PANEL) Reviewed date:10/07/2024 12:43:01 PM Interpretation:Lab Result Generalized Performing Lab:[facility], [address] [facility], [place], [address] Notes/Report: Sodium 138 133-146 mmol/L Potassium 4.3 3.5-5.1 mmol/L Chloride 103 98-107 mmol/L Carbon Dioxide 26 21-31 mmol/L Anion Gap 9 4-13 mmol/L Blood Urea Nitrogen 15 7-25 mg/dL Creatinine 0.75 0.60-1.30 mg/dL eGFRcr (CKD-EPI 2020) 87 >=60 mL/min/1.73 m2 Calcium 9.4 8.3-10.5 mg/dL Glucose 279 70-100 mg/dL Protein, Total 6.4 6.4-8.3 g/dL Albumin 4.1 3.5-5.0 g/dL ALT 16 9-43 units/L Alkaline Phosphatase 92 34-104 units/L AST 14 13-39 units/L Bilirubin, Total 0.3 0.2-1.2 mg/dL Reason For Referral No Information Medications Medication SIG (Take, Route, Frequency, Duration) Notes Start Date End Date Status Vitamin B12 - take 1 tablet daily - *Pick strength-form from [employer] for eRX* Active Probiotic Acidophilus 10 billion cell take 1 capsule by oral route once Oral 1 *Pick strength-form from [employer] for eRX* Active metFORMIN HCl 1000 MG take 1 tablet (1,000 mg) by oral route 2 times per day with morning and evening meals Oral 2 Active Krill Oil - daily oral *Pick strength-f orm from [employer] for eRX* Active Meloxicam 15 MG Take 1 tablet by mouth once daily Orally Once a day; Duration: 30 days Active Vitamin C 1000 MG take 1 tablet by oral route once Oral 1 Active NexIUM 20 MG take 1 capsule (20 mg) by oral route once daily at least 1 hour before a meal swallowing whole. Do not crush or chew granules. Oral 1 Active Vitamin D3 Active Vitamin E - daily oral *Pick strength-f orm from [employer] for eRX* Active amlodipine - mg unknown; take 1 tab daily oral *Reorder from [employer] for eRx and Interaction Alerts* Active Multi-Vitamin take 1 tablet by oral route once Oral 1 Active predniSONE 5 MG TAKE 1 TABLET BY MOUTH EVERY OTHER DAY FOR 90 DAYS.; Duration: 90 Active Lovastatin 20 MG take 1/2 tablet daily Oral Active Pepcid 20 MG take 1 tablet (20 mg) by oral route once daily at bedtime Oral 1 Active Loratadine 10 MG take 1 tablet (10 mg) by oral route once daily Oral 1 Active Leflunomide 20 MG Take 1 tablet by mouth once daily; Duration: 30 Active Problems Problem Type SNOMED Code ICD Code Onset Dates Problem Status W/U Status Risk Notes Problem Rheumatoid arthritis (04603004) Rheumatoid arthritis without rheumatoid factor, multiple sites (M06.09) Active confirmed Problem Personal history of primary malignant neoplasm of breast (745140107) History of breast cancer (Z85.3) Active confirmed Vital Signs Heart Rate 108 /min 10/06/2024 Temperature 97.6 degrees Fahrenheit 10/06/2024 Blood pressure diastolic 72 mm Hg 10/06/2024 Oximetry 98 % 10/06/2024 Height-cm 160.02 cm 10/06/2024 Weight-kg 79.92 kg 10/06/2024 Height 63 in 10/06/2024 Blood pressure systolic 120 mm Hg 10/06/2024 Weight 176.2 lbs 10/06/2024 BMI 31.21 kg/m2 10/06/2024 Encounters Encounter Location Date Provider Diagnosis [facility] [address] [facility] [address] [place] [id number] 01/22/2024 Beatriz Du Rheumatoid arthritis without rheumatoid factor, multiple sites M06.09 ; ALEXANDER positive R76.8 ; High risk medication use Z79.899 ; History of breast cancer Z85.3 ; Trochanteric bursitis, right hip M70.61 and Trochanteric bursitis, left hip M70.62 [facility] [address] [facility] [address] [place] [address] 04/13/2024 Beatriz Du Rheumatoid arthritis without rheumatoid factor, multiple sites M06.09 ; ALEXANDER positive R76.8 ; High risk medication use Z79.899 ; History of breast cancer Z85.3 ; Trochanteric bursitis, right hip M70.61 and Trochanteric bursitis, left hip M70.62 [facility] [address] [facility] [address] [place] [address] 07/07/2024 Beatriz Du Rheumatoid arthritis without rheumatoid factor, multiple sites M06.09 ; ALEXANDER positive R76.8 ; High risk medication use Z79.899 ; History of breast cancer Z85.3 ; Trochanteric bursitis, right hip M70.61 and Trochanteric bursitis, left hip M70.62 [facility] [address] [facility] [address] [place] [address] 10/06/2024 Beatriz Du Rheumatoid arthritis without rheumatoid factor, multiple sites M06.09 ; ALEXANDER positive R76.8 ; High risk medication use Z79.899 ; History of breast cancer Z85.3 ; Trochanteric bursitis, right hip M70.61 and Trochanteric bursitis, left hip M70.62 Assessments Encounter Date Diagnosis (ICD Code) Assessment Notes Treatment Notes Treatment Clinical Notes Section Notes 01/22/2024 Rheumatoid arthritis without rheumatoid factor, multiple sites (ICD-10 - M06.09) continue arava and prednisone 5mg QOD, labs today, L troch bursa injected with depomedrol, return in 3 months 01/22/2024 ALEXANDER positive (ICD-10 - R76.8) continue arava and prednisone 5mg QOD, labs today, L troch bursa injected with depomedrol, return in 3 months 04/13/2024 Rheumatoid arthritis without rheumatoid factor, multiple sites (ICD-10 - M06.09) continue arava and prednisone 5mg QOD, start mobic 15mg/day, advised to start thumb splinting, return in 3 months 07/07/2024 Rheumatoid arthritis without rheumatoid factor, multiple sites (ICD-10 - M06.09) continue arava and prednisone 5mg QOD, continue mobic 15mg/day, order hip Xrays, labs today, return in 3 months 10/06/2024 Rheumatoid arthritis without rheumatoid factor, multiple sites (ICD-10 - M06.09) mildly symptomatic, continue arava and prednisone 5mg QOD, continue mobic 15mg/day, labs today, return in 3 months 07/07/2024 ALEXANDER positive (ICD-10 - R76.8) continue arava and prednisone 5mg QOD, continue mobic 15mg/day, order hip Xrays, labs today, return in 3 months 10/06/2024 ALEXANDER positive (ICD-10 - R76.8) mildly symptomatic, continue arava and prednisone 5mg QOD, continue mobic 15mg/day, labs today, return in 3 months 04/13/2024 ALEXANDER positive (ICD-10 - R76.8) continue arava and prednisone 5mg QOD, start mobic 15mg/day, advised to start thumb splinting, return in 3 months 01/22/2024 High risk medication use (ICD-10 - Z79.899) continue arava and prednisone 5mg QOD, labs today, L troch bursa injected with depomedrol, return in 3 months 01/22/2024 History of breast cancer (ICD-10 - Z85.3) continue arava and prednisone 5mg QOD, labs today, L troch bursa injected with depomedrol, return in 3 months 04/13/2024 High risk medication use (ICD-10 - Z79.899) continue arava and prednisone 5mg QOD, start mobic 15mg/day, advised to start thumb splinting, return in 3 months 07/07/2024 High risk medication use (ICD-10 - Z79.899) continue arava and prednisone 5mg QOD, continue mobic 15mg/day, order hip Xrays, labs today, return in 3 months 10/06/2024 High risk medication use (ICD-10 - Z79.899) mildly symptomatic, continue arava and prednisone 5mg QOD, continue mobic 15mg/day, labs today, return in 3 months 10/06/2024 History of breast cancer (ICD-10 - Z85.3) mildly symptomatic, continue arava and prednisone 5mg QOD, continue mobic 15mg/day, labs today, return in 3 months 07/07/2024 History of breast cancer (ICD-10 - Z85.3) continue arava and prednisone 5mg QOD, continue mobic 15mg/day, order hip Xrays, labs today, return in 3 months 04/13/2024 History of breast cancer (ICD-10 - Z85.3) continue arava and prednisone 5mg QOD, start mobic 15mg/day, advised to start thumb splinting, return in 3 months 01/22/2024 Trochanteric bursitis, right hip (ICD-10 - M70.61) continue arava and prednisone 5mg QOD, labs today, L troch bursa injected with depomedrol, return in 3 months 01/22/2024 Trochanteric bursitis, left hip (ICD-10 - M70.62) continue arava and prednisone 5mg QOD, labs today, L troch bursa injected with depomedrol, return in 3 months 07/07/2024 Trochanteric bursitis, right hip (ICD-10 - M70.61) continue arava and prednisone 5mg QOD, continue mobic 15mg/day, order hip Xrays, labs today, return in 3 months 04/13/2024 Trochanteric bursitis, right hip (ICD-10 - M70.61) continue arava and prednisone 5mg QOD, start mobic 15mg/day, advised to start thumb splinting, return in 3 months 10/06/2024 Trochanteric bursitis, right hip (ICD-10 - M70.61) mildly symptomatic, continue arava and prednisone 5mg QOD, continue mobic 15mg/day, labs today, return in 3 months 10/06/2024 Trochanteric bursitis, left hip (ICD-10 - M70.62) mildly symptomatic, continue arava and prednisone 5mg QOD, continue mobic 15mg/day, labs today, return in 3 months 04/13/2024 Trochanteric bursitis, left hip (ICD-10 - M70.62) continue arava and prednisone 5mg QOD, start mobic 15mg/day, advised to start thumb splinting, return in 3 months 07/07/2024 Trochanteric bursitis, left hip (ICD-10 - M70.62) continue arava and prednisone 5mg QOD, continue mobic 15mg/day, order hip Xrays, labs today, return in 3 months Plan Of Treatment Pending Test Test Name Order Date CBC With Differential/Platelet Chem-Comprehensive 06/25/2023 CBC w auto diff 10/06/2024 Comprehensive metabolic panel (CMP) 09/14 Next Appt Details Provider Name:Beatriz Rosa, 01/15 11:00:00 AM, [address], [place], [address], Insurance Providers Payer Name Payer Address Payer Phone Subscriber Number Group Number Insured Name Patient Relationship to Insured Coverage Start Date Coverage End Date [facility] [employer]vantage [address] [address] [place], [place] [id number] [phone] [id number] Sindi Blakely Self - patient is the insured Medical (General) History Medical History History ICD Code ALEXANDER positive; Asthma; Breast cancer; Diabetes; Fibromyalgia; Lumbar spinal stenosis; Neuropathy; Surgical History Surgery Date(Month/Year) Carpal tunnel release; 2020-02-20 Sinus Surgery; 2020-02-20 Lumpectomy; 2020-02-20 Hysterectomy; 2020-02-20 tonsilectomy; 2020-02-20
--- OUTSIDE RECORDS SUMMARY | 2025-01-11 13:34 | XMS_ITS | Clinical Summary ---
Author Organization [facility] Address [address] [place] [address] Care Team Providers Care Receivables Specialist Name Role Phone Gwendolyn Bustamante MD Primary Care Provider [phone] Gwendolyn Bustamante MD Unavailable [phone] Allergies Active Allergy Reactions Criticality Noted Date Comments Codeine Vomiting Low 04/16/2016 codeine Diphenhydramine Hives Medium 04/16/2016 Erythromycin Vomiting Medium 04/16/2016 Hydrocodone Vomiting Low 04/16/2016 Iodine Rash,Other (see comment) Medium 04/16/2016 Latex Rash Medium 11/05/2018 Pregabalin Rash,Unknown Low 11/04/2018 Tetracycline GI Upset 07/06/2024 Medications SOFTCLIX LANCETS Misc Active hydrOXYzine (ATARAX) 25 MG tablet Take 1 tablet (25 mg total) by mouth 2 (two) times daily as needed. Active fluticasone propionate (FLONASE) 50 MCG/ACT nasal spray Active famotidine (PEPCID) 20 MG tablet take 1 tablet (20 mg) by oral route once daily at bedtime Oral 1 Active esomeprazole (NEXIUM) 20 MG capsule take 1 capsule (20 mg) by oral route once daily at least 1 hour before a meal swallowing whole. Do not crush or chew granules. Oral 1 Active B Complex Vitamins Cap Take 1 capsule by mouth daily. Active Ascorbic Acid 1000 MG Tab take 1 tablet by oral route once Oral 1 Active lansoprazole (PREVACID) 15 MG capsule Take 1 capsule (15 mg total) by mouth daily. Active leflunomide (ARAVA) 20 MG tablet Take 1 tablet by mouth once daily for 30 Active meloxicam (MOBIC) 15 MG tablet Take 1 tablet by mouth once daily for 30 Active ondansetron (ZOFRAN) 4 MG tablet Take 1 tablet (4 mg total) by mouth every 6 (six) hours. Active Multiple Vitamin (MULTIVITAMIN) capsule Take 1 capsule by mouth daily. Active predniSONE (DELTASONE) 5 mg tablet 1 Orally every other day for 30 days Active vitamin E (E 1000) 450 MG (1000 UT) Cap Take 1 capsule (1,000 Units total) by mouth daily. Active triamcinolone (KENALOG) 0.1 % cream APPLY A THIN LAYER OF CREAM EXTERNALLY TO THE AFFECTED AREA(S) TWICE DAILY Active Krill Oil 300 MG Cap daily oral Active Cyanocobalamin (VITAMIN B-12) 50 MCG Lozenge take 1 tablet daily - Active Glucose Blood (BLOOD GLUCOSE TEST STRIPS 333 ) 3 (three) times daily. Active Cholecalciferol (VITAMIN D-3) 25 MCG (1000 UT) Cap Vitamin D3 Active albuterol sulfate HFA 108 (90 Base) MCG/ACT inhalerIndicatio ns:Acute bronchitis due to other specified organisms Inhale 2 puffs into the lungs every 6 (six) hours as needed for Wheezing. 6.7 g 1 5 Active Spacer/Aero-Hold ing Chambers DeviceIndication s:Chronic cough,Mild persistent asthma without complication (HHS/HCC),Acute bronchitis due to other specified organisms 1 each by Does not apply route 2 (two) times a day. 1 each 5 Active budesonide-formo terol (SYMBICORT) 160-4.5 MCG/ACT inhalerIndicatio ns:Chronic cough,Mild persistent asthma without complication (HHS/HCC),Acute bronchitis due to other specified organisms Inhale 1 puff into the lungs 2 (two) times daily. 6 g 1 5 Active amLODIPine (NORVASC) 5 MG tabletIndication s:Essential hypertension Take 1 tablet (5 mg total) by mouth daily. 90 tablet 1 5 Active metFORMIN (GLUCOPHAGE) 1000 MG tabletIndication s:Type 2 diabetes mellitus without complication, without long-term current use of insulin (CMS/HCC HHS/HCC) Take 1 tablet (1,000 mg total) by mouth daily with breakfast. 90 tablet 1 5 Active metFORMIN (GLUCOPHAGE) 500 MG tabletIndication s:Type 2 diabetes mellitus without complication, without long-term current use of insulin ([facility]) Take 1 tablet (500 mg total) by mouth daily. 90 tablet 1 5 Active lovastatin (MEVACOR) 20 MG tabletIndication s:Type 2 diabetes mellitus without complication, without long-term current use of insulin ([facility]) Take 1 tablet (20 mg total) by mouth daily with supper. 90 tablet 1 5 Active tiZANidine (ZANAFLEX) 4 MG tabletIndication s:Medication refill Take 1 tablet (4 mg total) by mouth daily. 90 tablet 1 5 Active losartan (COZAAR) 25 MG tabletIndication s:Essential hypertension Take 1 tablet (25 mg total) by mouth daily. 90 tablet 1 5 Active Blood Glucose Monitoring Suppl (ACCU-CHEK GUIDE ME) w/Device KitIndications:T ype 2 diabetes mellitus without complication, without long-term current use of insulin ([facility]) 1 kit by Does not apply route daily. Use to check blood sugar once daily 1 kit 1 5 Active Glucose Blood (BLOOD GLUCOSE TEST STRIPS 333) StripIndications :Type 2 diabetes mellitus without complication, without long-term current use of insulin ([facility]) 1 strip by Other route daily. Use to test blood sugar once daily 100 strip 5 Active ZINC OR Use as directed 1 tablet in the mouth or throat daily. Active azelastine 0.1 % nasal sprayIndications :Acute non-recurrent maxillary sinusitis 1 spray by Nasal route 2 (two) times daily. Use in each nostril as directed 30 mL 1 5 Active amoxicillin (AMOXIL) 500 MG capsuleIndicatio ns:Acute non-recurrent maxillary sinusitis Take 1 capsule (500 mg total) by mouth 3 (three) times daily for 7 days. 21 capsule 5 12/15/19 Active Problems Problem Noted Date Diagnosed Date Asthma ([facility]) 08/11/2024 Assessment & Plan (09/01/2024 3:22 PM CDT): - added qvar - pt to rinse mouth after using inhalers Orders: Beclomethasone Diprop HFA (QVAR REDIHALER) 80 MCG/ACT AEROSOL, BREATH ACTIVATED; Inhale 1 puff into the lungs 2 (two) times daily. Nonspecific tuberculin test reaction 08/11/2024 Personal history of malignant neoplasm of breast 07/21/2024 Assessment & Plan (07/21/2024 3:37 PM CDT): - pt to go for mmg Decreased hearing of both ears 07/21/2024 Assessment & Plan (07/21/2024 3:38 PM CDT): -check hearing with audilogy Chronic back pain 07/10/2024 Overview (07/10/2024): DDD-seeing pain mx/neuro Obesity 07/10/2024 Iron deficiency 06/11/2023 Paresthesia of lower extremity 06/11/2023 Rheumatoid arthritis ([facility]) Assessment & Plan (10/30/2024 11:02 AM CDT): - pt is on leflunamide - pt sees radio news writer Assessment & Plan (08/31/2024 12:39 PM CDT): - pt is on leflunamide - pt sees radio news writer Assessment & Plan (07/21/2024 2:51 PM CDT): - pt is on leflunamide - pt sees radio news writer Type 2 diabetes mellitus, wi thout long-term current use of insulin ([facility]) 05/12/2020 Assessment & Plan (10/30/2024 11:02 AM CDT): - last A1c -6.9 in 07/07/2024 with radio news writer -pt is on metformine 1000 mg am and 500mg pm Continue statin due to multiple risk factors Orders: metFORMIN (GLUCOPHAGE) 1000 MG tablet; Take 1 tablet (1,000 mg total) by mouth daily with breakfast. metFORMIN (GLUCOPHAGE) 500 MG tablet; Take 1 tablet (500 mg total) by mouth daily. lovastatin (MEVACOR) 20 MG tablet; Take 1 tablet (20 mg total) by mouth daily with supper. LIPID PANEL; Future ALBUMIN URINE RANDOM W/CREATININE; Future HEMOGLOBIN, GLYCOSYLATED; Future Blood Glucose Monitoring Suppl (ACCU-CHEK GUIDE ME) w/Device Kit; 1 kit by Does not apply route daily. Use to check blood sugar once daily Glucose Blood (BLOOD GLUCOSE TEST STRIPS 333) Strip; 1 strip by Other route daily. Use to test blood sugar once daily Assessment & Plan (08/31/2024 12:39 PM CDT): - last A1c -6.9 in 07/07/2024 with radio news writer -pt is on metformine 1000 mg am and 500mg pm Continue statin due to multiple risk factors Assessment & Plan (07/21/2024 2:50 PM CDT): - last A1c -6.9 in 07/07/2024 with radio news writer -pt is on metformine 1000 mg am and 500mg pm Essential hypertension 05/12/2020 Overview (07/21/2024): off med Assessment & Plan (10/30/2024 11:02 AM CDT): -improving - pt is on amlodipine 5 mg daily - -added losartan 25mg daily ( pt is diabetic as well)recetly -low salt diet Orders: amLODIPine (NORVASC) 5 MG tablet; Take 1 tablet (5 mg total) by mouth daily. losartan (COZAAR) 25 MG tablet; Take 1 tablet (25 mg total) by mouth daily. COMPREHENSIVE METABOLIC PANEL; Future Assessment & Plan (08/31/2024 12:39 PM CDT): -improving - pt is on amlodipine 5 mg daily - -added losartan 25mg daily ( pt is diabetic as well)recetly -low salt diet Assessment & Plan (08/11/2024 4:05 PM CDT): BP elevated today - pt is on amlodipine 5 mg daily - -added losartan 25mg daily ( pt is diabetic as well)recetly -keep f/u to reassess Assessment & Plan (07/21/2024 3:37 PM CDT): - pt is on amlodipine 5 mg daily - -add losartan 25mg daily ( pt is diabetic as well) Abnormal results of liver function studies 05/12 Overview (08/11/2024): hepatitis panel-neg/ liver us-ok GERD (gastroesophageal reflux disease) Hyperlipidemia 05/12/2020 Fibromyalgia 01/01/2019 Antinuclear antibody (ALEXANDER) positive 07/18/2018 Overview (08/11/2024): scl 70-positive- evaluated by rheum-seeing another rheumat Resolved Problems Problem Noted Date Diagnosed Date Resolved Date Acute sciatica 08/11/2024 08/21/2024 Candidiasis of vagina 08/11/20242024 Cellulitis 08/11/2024 08/21/2024 Elevated blood-pressure read ing without diagnosis of hypertension 08/11/2024 08/21/2024 Hyperglycemia 08/11/2024 08/21/2024 Pruritus of vagina 08/11/2024 Acute bronchitis due to othe r specified organisms 08/11/2024 08/21/2024 Assessment & Plan (08/31/2024 12:39 PM CDT): Improving - pt to keep good hydration Covid/flu /strep -neg -rxed with augmantin/albuterol inhaler Tessalon mauro for cough Assessment & Plan (08/11/2024 4:06 PM CDT): - pt to keep good hydration Covid/flu /strep -neg -will rx with augmantin/albuterol inhaler Tessalon mauro for cough Pt to go to ER if problem worsen Acute non-recurrent maxillary sinusitis 07/21/2024 08/21/2024 Assessment & Plan (07/21/2024 3:37 PM CDT): - keep good hydration/steam inhalation - will rx amoxicillin since she is on med for RA Acute pain of left knee 07/09/2024 05/0 12/2024 Assessment & Plan (07/09/2024 4:40 PM CDT): Following fall on 07/06/2024 -Improving -xray done at ER- soft tissue injury without fx -showed OA Facial injury, subsequent encounter 07/09/2024 08/21/2024 Assessment & Plan (07/09/2024 4:40 PM CDT): -CT head -negative for fx -Improving Acute cystitis without hematuria 05/12/2020 08/21/2024 Shortness of breath 05/12/2020 08/12/19 Encounters Date Type Department Care Team Description 12/07/2024 11:00 AM CDT Office Visit [facility] Family & Internal Medicine [address] [phone] Gwendolyn Bustamante MD Sinus Problem (Sinus congestion. Pulsating, beating feeling in R ear /Seen ENT few months back dx loss of hearing in [place] ear) 12/07/2024 Travel 10/30/2024 Results Follow-Up [facility] Family & Internal Medicine [address] [phone] Gwendolyn Bustamante MD TSH W/REFLEX, HEMOGLOBIN, GLYCOSYLATED, ALBUMIN URINE RANDOM W/CREATININE, Additional followed-up results: 2 10/29/2024 4:17 PM CDT - 10/29/2024 11:59 PM CDT Hospital Encounter [facility] [address] [place] [phone] Gwendolyn Bustamante MD Discharge Disposition: Home or Self Care (Routine Discharge) 10/29/2024 3:20 PM CDT Laboratory Only [facility] Family & Internal Medicine [address] [phone] Gwendolyn Bustamante MD 10/29/2024 2:00 PM CDT Office Visit [facility] Family & Internal Medicine [address] [phone] Gwendolyn Bustamante MD Follow Up (F/u discuss labs, seen dairy technician has new allergies, needs her scripts reordered so the refills come to [facility] instead of old office.) 10/29/2024 Travel from Last 3 Months Immunizations Immunization Administration Dates Next Due Fluzone High Dose (IIV, triv alent, 0.5mL) 02/04/2024 Fluzone High Dose - >Age 65 (Prefilled Syringe) 01/18/2023,02/23/2022 Influenza (Generic) 01/24/2016 Influenza Adult (Generic) 01/25/2021,,02/03/2019,2017,02/04/2017,01/04/2015 PFIZER COVID-19 (ORIGINAL FORMULATION, PURPLE CAP) mRNA, LNP-S, PF, 30 MCG/0.3 ML DOSE 06/14/2020 Pneumococcal (Prevnar 20) 01/26/2022 Tdap (Generic) 01/25/2015 Family History Medical History Relation Comments Heart Disease Father Cancer Maternal Grandmother Diabetes Maternal Grandmother Heart Disease Maternal Grandmother Heart Disease Mother Diabetes Sister Heart Disease Sister Relation Status Comments Father Unknown Maternal Grandmother Mother Unknown Sister Social History Tobacco Use Types Packs/Day Years Used Date Smoking Tobacco: Never Passive Smoke Exposure: Never Smokeless Tobacco: Never Tobacco Cessation:Counseling Given: No Alcohol Use Standard Drinks/Week Comments Never 0 (1 standard drink = 0.6 oz pur e alcohol) PHQ-2 Answer Date Recorded Patient Health Questionnaire-2 Score 0 07/09/2024 Comments No Sex and Gender Information Value Date Recorded Sex Assigned at Female 07/07/2024 9:46 AM CDT Legal Sex Female 8:04 PM CDT Gender Identity Female 07/09/2024 7:31 AM CDT Sexual Orientation Straight 07/09/2024 7: 32 AM CDT Sexual Orientation Lesbian or Castro 07/09/2024 7: 32 AM CDT Last Filed Vital Signs Vital Sign Reading Time Taken Comments Blood Pressure 132/60 12/07/2024 11:17 AM CDT eunice koroma Pulse 79 12/07/2024 11:10 AM CDT Temperature 36.8 C (98.3 F) 12/07/2024 11:10 AM CDT Respiratory Rate 18 12/07/2024 11:10 AM CDT Oxygen Saturation 97% 12/07/2024 11:10 AM CDT Inhaled Oxygen Concentration - - Weight 80 kg (176 lb 6.4 oz) 12/07/2024 11:10 AM CDT Height 160 cm (5' 3) 12/07/2024 11:10 AM CDT Body Mass Index 31.25 12/07/2024 11:10 AM CDT Plan of Treatment Upcoming Encounters Date Type Department Care Team (Late st Contact Info) Description 03/02/2025 11:20 AM TAX REPRESENTATIVE Office Visit [facility] Family & Internal Medicine - [place] [phone] [place] [phone] [place] [address] [facility] [address] [place] [address] Health Maintenance Due Date Last Done Comments Colorectal Cancer Screening Colonoscopy (10 Years) 1956 Diabetes: Retinopathy Eye Exam 1974 Hepatitis C 1974 Zoster Vaccines (1 of 2) 2006 RSV Immunization or 60+ Years (1 - Risk 60-74 years 1-dose series) 2016 Annual Medicare Wellness Visit 2021 COVID-19 Vaccine ( season) 2024 11/23/2021, 02/24/2021, 07/05/2020, Additional history exists DTaP, Tdap and Td Vaccines (2 - Td or Tdap) 01/25/2025 01/25/2015 Hemoglobin A1C 05/01/2025 10/29/2024, 02/14, 03/04/2024, Additional history exists Kidney Health Evaluation 10/29/2025 10/29/2024 Lipid Panel 10/29/2025 10/29/2024 Mammogram Screening 10/10/2026 10/10/2024, 10/10/2024, 04/11/2023, Additional history exists Colorectal Cancer Screening FIT/FOBT (1 Year) Discontinued 12/13/2021 Pneumococcal Vaccine: 50+ Years Completed 01/26/2022 PHQ-2 (Physician [place]) Completed 07/09/2024 Meningococcal B Vaccine Aged Out No l onger eligible based on patient's age to complete this topic Meningococcal Vaccine Aged Out No donita maryanne eligible based on patient's age to complete this topic RSV Immunizations Under 20 Months Aged Out No longer eligible based on patient's age to complete this topic Procedures Procedure Name Priority Date/Time Associated Diagnosis Comments COLLECTION VENOUS BLOOD VENIPUNCTURE Routine 10/29/2024 3:19 PM CDT Essential hypertension Type 2 diabetes mellitus without complication, without long-term current use of insulin ([facility]) Thyroid disorder screening COMPREHENSIVE METABOLIC PANEL Routine 10/29/2024 3:18 PM CDT Essential hypertension LIPID PANEL Routine 10/29/2024 3:18 PM CDT Type 2 diabetes mellitus without complication, without long-term current use of insulin ([facility]) ALBUMIN URINE RANDOM W/CREATININE Routine 10/29/2024 3:18 PM CDT Type 2 diabetes mellitus without complication, without long-term current use of insulin ([facility]) HEMOGLOBIN, GLYCOSYLATED Routine 10/29/2024 3:18 PM CDT Type 2 diabetes mellitus without complication, without long-term current use of insulin ([facility]) TSH W/REFLEX Routine 10/29/2024 3:18 PM CDT Thyroid disorder screening MAMMOGRAM GENERIC (SCAN ORDER) 10/10/2024 FECAL BLOOD OCCULT (SCAN ORDER) Routine 12/13/2021 from Last 3 Months or Most Recently Relevant to Health Maintenance Results * TSH W/REFLEX (10/29/2024 3:18 PM CDT) TSH 1.207 0.358 - 3.74 uIU/ML 10/29/2024 5:13 PM CDT [facility] Comment: HIGH DOSES OF BIOTIN MAY INTERFERE WITH THIS TEST RESULT. CORRELATION TO CLINICAL HISTORY AND PRESENTATION RECOMMENDED. FREE T4 NOT INDICATED 10/29/2024 3:18 PM CDT Gwendolyn Bustamante MD LABORATORY Final Result Performing Organization Address [facility] Co de Phone Number [facility] [address] [place] [address], [place] [phone] * (ABNORMAL) HEMOGLOBIN, GLYCOSYLATED (10/29/2024 3:18 PM CDT) HGB A1C 7.1(H) <5.7 % 10/29/2024 4:47 PM CDT [facility] Comment: INCREASED RISK OF DIABETES <5.7% NON-DIABETES 5.7-6.4% INCREASED RISK FOR FUTURE DIABETES > OR = 6.5 CONSISTENT WITH DIABETES STANDARDS OF MEDICAL CARE IN DIABETES-2010 DIABETES CARE, 33(SUPP 1): S1-S61,2010 ESTIMATED AVG GLUCOSE 157 mg/dL 10/29/2024 4:47 PM CDT [facility] 10/29/2024 3:18 PM CDT Gwendolyn Bustamante MD LABORATORY Final Result Performing Organization Address [facility] Co de Phone Number [facility] [address] [place] [address], [place] [phone] * ALBUMIN URINE RANDOM W/CREATININE (10/29/2024 3:18 PM CDT) CREATININE (U) 69.1 28 - 217 MG/DL 10/29/2024 5:05 PM CDT [facility] MICROALBUMIN (U) 0.3 <2.0 mg/dL 10/30/19 5:05 PM CDT [facility] ALBUMIN/CREAT RATIO 4.3 <30.0 MG/G 10/29/2024 5:05 PM CDT [facility] URINE SPECIMEN / Unknown 10/29/2024 3:18 PM CDT Gwendolyn Bustamante MD URINE ORDERABLES Final Result [facility] [address] [place] [address], * (ABNORMAL) COMPREHENSIVE METABOLIC PANEL (10/29/2024 3:18 PM CDT) GLUCOSE 89 70 - 99 MG/DL 10/29/2024 5:13 PM CDT [facility] BUN 20(H) 7 - 18 MG/DL 10/29/2024 5:13 PM CDT [facility] CREATININE S/P/B 0.66 0.55 - 1.02 MG/DL 10/29/2024 5:13 PM CDT [facility] SODIUM S/P/B 143 136 - 145 MMOL/L 10/29/2024 5:13 PM CDT [facility] POTASSIUM S/P/B 4.2 3.5 - 5.1 MMOL/L 10/29/2024 5:13 PM CDT [facility] CHLORIDE S/P/B 104 100 - 108 MMOL/L 10/29/2024 5:13 PM CDT [facility] CO2 30.4 21 - 32 MMOL/L 10/29/2024 5:13 PM CDT [facility] CALCIUM S/P/B 9.3 8.5 - 10.1 MG/DL 10/29/2024 5:13 PM CDT [facility] BILIRUBIN TOTAL S/P/B 0.3 0.2 - 1.2 MG/DL 10/29/2024 5:13 PM CDT [facility] TOTAL PROTEIN S/P/B 7.0 6.4 - 8.2 G/DL 10/29/2024 5:13 PM T [facility] ALBUMIN S/P/B 3.8 3.4 - 5.0 G/DL 10/29/2024 5:13 PM T [facility] AST 20 15 - 37 U/L 10/29/2024 5:13 PM T [facility] ALT 33 14 - 55 U/L 10/29/2024 5:13 PM T [facility] ALKALINE PHOSPHATASE S/P/B 114 50 - 136 U/L 10/29/2024 5:13 PM T [facility] ANION GAP 8.6 5 - 15 MMOL/L 10/29/2024 5:13 PM T [facility] BUN CREATININE RATIO 30.3(H) 6 - 26 10/29/2024 5:13 PM [facility] A/G RATIO 1.2 1.0 - 2.0 RATIO 10/29/2024 5:13 PM [facility] GFR ESTIMATE >90 >90 ML/MIN/1.7 3 M2 10/29/2024 5:13 PM [facility] Comment: NOTE: eGFR is not calculated for patients <18 years of age. This is an estimated GFR calculation using the new CKD EPI creatinine equation without race and so does not require a correction factor for race. This estimated GFR should not be used for calculating drug doses. 10/29/2024 3:18 PM CDT us Gwendolyn Bustamante MD LABORATORY Final Result [facility] [address] [place] [id number], [place] [phone] * LIPID PANEL (10/29/2024 3:18 PM CDT) CHOLESTEROL 191 <200.0 MG/DL 10/29/2024 5:13 PM CDT [facility] TRIGLYCERIDES 139 <150 MG/DL 10/29/2024 5:13 PM CDT [facility] HDL 79 >40.0 MG/DL 10/29/2024 5:13 PM CDT [facility] LDL (CALCULATED) 84 <100 MG/DL 10/30/19 5:13 PM CDT [facility] Comment:CALCULATED USING THE FRIEDEWALD EQUATION NON HDL CHOLESTEROL 112 <130 MG/DL 10/29 5:13 PM CDT [facility] CHOL/HDL RATIO 2.4 0.0 - 4.5 10/29/2024 5:13 PM CDT [facility] VLDL CALCULATION 28 5 - 55 MG/DL 10/29/2024 5:13 PM T [facility] LIPID INTERPRETATION 10/29/2024 5:13 PM CDT [facility] Comment: NIH CONCENSUS REPORT RECOMMENDATIONS: ADULT CHILD LOW RISK: CHOLESTEROL <200 <170 TRIGLYCERIDE <150 --- HDL >=60 --- LDL <100 <110 BORDERLINE: CHOLESTEROL 200-239 170-199 TRIGLYCERIDE 150-199 --- HDL 40-59 --- LDL 100-159 110-129 HIGH RISK: CHOLESTEROL >=240 >=200 TRIGLYCERIDE >=200 --- HDL <40 --- LDL >=160 >=130 10/29/2024 3:18 PM CDT us Gwendolyn Bustamante MD LABORATORY Final Result [facility] [address] [place] [address], * MAMMOGRAM GENERIC (SCAN ORDER) (10/10/2024) Anatomical Region Laterality Modality Other 10/10/2024 [facility] Scanned SCANNING Final Resu lt * FECAL BLOOD OCCULT (12/13/2021) FECAL OCCULT BLOOD NEGATIVE [facility] 12/13/2021 [facility] Scanned SCANNING Final Resu lt [facility] from Last 3 Months or Most Recently Relevant to Health Maintenance Insurance Care Teams Receivables Specialist Relationship Specialty Start Date [place] [address] [place] [id number] PCP - General INTERNAL MEDICINE 07/06/24 [place] [address] [place] [address] INTERNAL MEDICINE 07/06/24
--- OUTSIDE RECORDS SUMMARY | 2025-01-11 13:34 | XMS_ITS | Data Portability ---
Author Organization [facility] OSMANRylie [facility] Address [address] [place] [address] Care Team Providers Care Spud Driller Name Role Phone GWENDOLYN LE Primary Care Provider Assessment No assessment recorded. Plan of Treatment Reminders Order Date Submit Date Provider Last Modified By Organization Details Last Modified Time Details Appointments None recorded . Lab fecal occult blood, immunoas say, stool 2024 025 [email or web address] [facility], [address], [place], [address], 5 08:23:39 CMP, serum or plasma 2023 024 [facility], [address], [address], [place], [address], 4 23:05:57 HbA1c (hemoglo bin A1c), blood 2023 024 [facility], [address], [place], [address], 4 23:05:59 lipid panel, serum 2023 024 [facility], [address], [place], [address], 4 23:05:56 TSH, serum or plasma 2023 024 [facility], [address], [place], [address], 4 23:05:58 CBC 2023 024 [facility], [address], [place], [address], 4 23:05:58 HbA1c (hemoglo bin A1c), blood 2023 024 nsuthan In-Office Order, Internal Use Only DO Not Attach Compendium DO Not Attach Compendium, Do Not Delete/merge, [id number] 4 10:21:30 HbA1c (hemoglo bin A1c), blood 2023 024 nsuthan In-Office Order, Internal Use Only DO Not Attach Compendium DO Not Attach Compendium, Do Not Delete/merge, [id number] 09:26:54 Referral None recorded . Procedures None recorded . Surgeries None recorded . Imaging None recorded . Medication Orders tizanidi ne 4 mg tablet 2024 025 [facility] [place], [address], 5 11:42:51 metformi n 500 mg tablet 2023 024 [facility] [place], [address], 4 10:20:27 cycloben zaprine 10 mg tablet 2023 025 [facility] [address] [place], [address], 5 11:38:43 Patient TargetsNo targets recorded. Patient Instructions Encounter Date Encounter Id Patient Instructions Last Modified By Organization Details Last Modified Time 05/10/2023 [id number] keep f/u nsuthan Not available 05/10 16:03:34 05/21/2023 [id number] A healthy lifestyle: care instructions nsuthan Not available 05/21/2023 09:26:53 type 2 diabetes: care instructions nsuthan Not available 05/21/2023 09:26:53 a1c and f/u in 4 month nsuthan Not available 05/21/2023 09:07:08 09/24/2023 [id number] f/u in 6 month nsuthan Not available 09/24/2023 10:19:24 02/04/2024 [id number] f/u in 4month nsuthan Not available 1 10:22:50 05/05/2024 [id number] f/u in 3 month nsuthan Not available 05/05/2024 11:44:02 Reason for Referral None Reported. Results Created Date Observation Date Name Description Value Unit Range Abnormal Flag Note LastModifiedBy Organization Detail LastModifiedTime 05/21/19 24 05/21/2023 HbA1c (hemo globi n A1c), blood HbA1c 7.0 Not Available In-Office Order Internal Use Only DO Not Attach Compendium DO Not Attach Compendium, Do Not Delete/merge, [id number] 05/21/2023 09:04:12 09/24/19 24 09/24/2023 HbA1c (hemo globi n A1c), blood HbA1c 6.8 Not Available In-Office Order Internal Use Only DO Not Attach Compendium DO Not Attach Compendium, Do Not Delete/merge, [id number] 09/24/2023 10:07:13 03/04/20 24 03/05/2024 LIPID PANEL , STAND MARÍA cholesterol, total 190 mg/dL <200 normal Not Available [facility] [address] [place], [address], 03/05/2024 09:17:43 03/04/20 24 03/05/2024 LIPID PANEL , STAND MARÍA HDL cholesterol 77 mg/dL > or = 50 normal Not Available [facility] [address] [place], [address], 03/05/2024 09:17:43 03/04/20 24 03/05/2024 LIPID PANEL , STAND MARÍA triglyceride s 100 mg/dL <150 normal Not Available [facility] [address] [place], [address], 03/05/2024 09:17:43 03/04/2003/05/2024 LIPID PANEL , STAND MARÍA LDL-choleste rol 93 mg/dL _(kim c) normal Refer ence range : <100 Raisa able range <100 mg/dL for prima ry preve ntion ; <70 mg/dL for patie nts with CHD or diabe tic patie nts with > or = 2 CHD risk facto rs. LDL-C is now calcu lated using the Shira n-Hop kins calcu latdenisha n, which is a valid ated novel mary aden accur accarlyn than the Fried sheila equat ion in the estim ation of LDL-C . Shira tellez SS et al. MARLEN. 2013; 310(1 9): 2061- 2068 (http ://ed ucati on.Qu jeannaGetShopApp. com/f aq/FA Q164) Not Available [facility] [address] [place], [address], 03/05/2024 09:17:43 03/04/20 24 03/05/2024 LIPID PANEL , STAND MARÍA chol/HDLC ratio 2.5 (calc ) <5.0 normal Not Available [facility] [address] [place], [address], 03/05/2024 09:17:43 03/04/20 24 03/05/2024 LIPID PANEL , STAND MARÍA non HDL cholesterol 113 mg/dL _(kim c) <130 normal For patie nts with diabe delilah plus 1 major ASCVD risk facto r, treat ing to a non-H DL-C goal of <100 mg/dL (LDL- C of <70 mg/dL ) is luisi ashely garrison optio n. Not Available [facility] [address] [place], [address], 03/05/2024 09:17:43 03/04/20 24 03/05/2024 COMPR EHENS JOSE METAB OLIC PANEL glucose 141 mg/dL 65-99 high Fasti ng refer ence inter annmarie For someo ne witho ut known diabe delilah, a gluco se value >125 mg/dL indic ates that they may have diabe delilah and this shoul d be confi rmed with a follo w-up test. Not Available [address], [address], 03/05/2024 09:17:45 03/04/20 24 03/05/2024 COMPR EHENS JOSE METAB OLIC PANEL urea nitrogen (BUN) 14 mg/dL 7-25 normal Not Available [address], [address], 03/05/2024 09:17:45 03/04/20 24 03/05/2024 COMPR EHENS JOSE METAB OLIC PANEL creatinine 0.65 mg/dL 0.50-1 .05 normal Not Available [address], [address], 03/05/2024 09:17:45 03/04/20 24 03/05/2024 COMPR EHENS JOSE METAB OLIC PANEL eGFR 96 mL/mi n/1.7 3m2 > or = 60 normal Not Available [address], [address], 03/05/2024 09:17:45 03/04/20 24 03/05/2024 COMPR EHENS JOSE METAB OLIC PANEL BUN/creatini ne ratio SEE NOTE: (calc ) 6-22 Not Repor jeb: BUN and Creat inine are withi n refer ence range . Not Available [address], [address], 03/05/2024 09:17:45 03/04/20 24 03/05/2024 COMPR EHENS JOSE METAB OLIC PANEL sodium 142 mmol/ L 135-14 6 normal Not Available [address], [address], 03/05/2024 09:17:45 03/04/20 24 03/05/2024 COMPR EHENS JOSE METAB OLIC PANEL potassium 4.0 mmol/ L 3.5-5. 3 normal Not Available [address], [address], 03/05/2024 09:17:45 03/04/20 24 03/05/2024 COMPR EHENS JOSE METAB OLIC PANEL chloride 103 mmol/ L 98-110 normal Not Available [address], [address], 03/05/2024 09:17:45 03/04/20 24 03/05/2024 COMPR EHENS JOSE METAB OLIC PANEL carbon dioxide 32 mmol/ L 20-32 normal Not Available [address], [address], 03/05/2024 09:17:45 03/04/20 24 03/05/2024 COMPR EHENS JOSE METAB OLIC PANEL calcium 9.2 mg/dL 8.6-10 .4 normal Not Available [address], [address], 03/05/2024 09:17:45 03/04/20 24 03/05/2024 COMPR EHENS JOSE METAB OLIC PANEL protein, total 6.4 g/dL 6.1-8. 1 normal Not Available [address], [address], 03/05/2024 09:17:45 03/04/20 24 03/05/2024 COMPR EHENS JOSE METAB OLIC PANEL albumin 4.2 g/dL 3.6-5. 1 normal Not Available [address], [address], 03/05/2024 09:17:45 03/04/20 24 03/05/2024 COMPR EHENS JOSE METAB OLIC PANEL globulin 2.2 g/dL_ (calc ) 1.9-3. 7 normal Not Available [address], [address], 03/05/2024 09:17:45 03/04/20 24 03/05/2024 COMPR EHENS JOSE METAB OLIC PANEL albumin/glob ulin ratio 1.9 (calc ) 1.0-2. 5 normal Not Available [address], [address], 03/05/2024 09:17:45 03/04/20 24 03/05/2024 COMPR EHENS JOSE METAB OLIC PANEL bilirubin, total 0.5 mg/dL 0.2-1. 2 normal Not Available [address], [address], 03/05/2024 09:17:45 03/04/20 24 03/05/2024 COMPR EHENS JOSE METAB OLIC PANEL alkaline phosphatase 91 U/L 37-153 normal Not Available [address], [address], 03/05/2024 09:17:45 03/04/20 24 03/05/2024 COMPR EHENS JOSE METAB OLIC PANEL AST 14 U/L 10-35 normal Not Available [address], [address], 03/05/2024 09:17:45 03/04/20 24 03/05/2024 COMPR EHENS JOSE METAB OLIC PANEL ALT 18 U/L 6-29 normal Not Available [address], [address], 03/05/2024 09:17:45 03/04/20 24 03/05/2024 CBC (H/H, RBC, INDIC ES, WBC, PLT) white blood cell count 6.9 thous and/u L 3.8-10 .8 normal Not Available [address], [address], 03/05/2024 02:27:50 03/04/20 24 03/05/2024 CBC (H/H, RBC, INDIC ES, WBC, PLT) red blood cell count 4.65 marc on/uL 3.80-5 .10 normal Not Available [address], [address], 03/05/2024 02:27:50 03/04/20 24 03/05/2024 CBC (H/H, RBC, INDIC ES, WBC, PLT) hemoglobin 14.2 g/dL 11.7-1 5.5 normal Not Available [address], [address], 03/05/2024 02:27:50 03/04/20 24 03/05/2024 CBC (H/H, RBC, INDIC ES, WBC, PLT) hematocrit 42.9 % 35.0-4 5.0 normal Not Available [address], [address], 03/05/2024 02:27:50 03/04/20 24 03/05/2024 CBC (H/H, RBC, INDIC ES, WBC, PLT) MCV 92.3 fL 80.0-1 00.0 normal Not Available [address], [address], 03/05/2024 02:27:50 03/04/20 24 03/05/2024 CBC (H/H, RBC, INDIC ES, WBC, PLT) MCH 30.5 pg 27.0-3 3.0 normal Not Available [address], [address], 03/05/2024 02:27:50 03/04/20 24 03/05/2024 CBC (H/H, RBC, INDIC ES, WBC, PLT) MCHC 33.1 g/dL 32.0-3 6.0 normal For adult s, a sligh t decre ase in the calcu lated MCHC value (in the range of 30 to 32 g/dL) is most likel y not clini prashanth ryan t; raven er, it shoul d be inter prete d with cauti on in [facility] n with other red cell monika eters and the patie nt's clini kim condi tion. Not Available [address], [address], 03/05/2024 02:27:50 03/04/20 24 03/05/2024 CBC (H/H, RBC, INDIC ES, WBC, PLT) RDW 11.7 % 11.0-1 5.0 normal Not Available [facility] [address], [address], 03/05/2024 02:27:50 03/04/20 24 03/05/2024 CBC (H/H, RBC, INDIC ES, WBC, PLT) platelet count 306 thous and/u L 140-40 0 normal Not Available [facility] [address], [address], 03/05/2024 02:27:50 03/04/20 24 03/05/2024 CBC (H/H, RBC, INDIC ES, WBC, PLT) MPV 11.3 fL 7.5-12 .5 normal Not Available [address], [address], 03/05/2024 02:27:50 03/04/20 24 03/05/2024 TSH TSH 1.44 mIU/L 0.40-4 .50 normal Not Available [address], [address], 03/05/2024 03:00:15 03/04/20 24 03/04/2024 HEMOG LOBIN A1C hemoglobin A1C 7.0 %_of_ total _HGB <5.7 high For someo ne witho ut known diabe delilah, a hemog lobin A1c value of 6.5% or great er indic ates that they may have diabe delilah and this shoul d be confi rmed with a follo w-up test. For someo ne with known diabe delilah, a value <7% indic ates that their diabe delilah is well contr olled and a value great er than or equal to 7% indic ates subop timal contr ol. A1c targe ts shoul d be indiv idual ized based on durat ion of diabe delilah, age, comor bid condi tions , and other consi derat ions. Curre ntly, no conse nsus exist s harjeet rubio use of hemog lobin A1c for diagn osis of diabe delilah for child marni. Not Available [facility] [address] [address] n, [place], [address], 03/04/2024 23:05:59 03/04/20 24 03/04/2024 Hemog lobin A1c/H emogl obin. total in Blood hemoglobin A1C/hemoglob in.total in blood 7 % HGB A1C 7.0 % Not Available Not Available 07/21/2024 16:35:21 08/12/19 25 08/14/2024 Strep tococ cus pyoge raúl [Pres ence] in Throa t by Organ ism speci fic cultu re bacteria identified in throat by culture CULTU RE, THROA T, SPECI AL W/GRP A STREP SUSCE PT. Micro Numbe r: [id number] Test Statu s: Final Speci men Sourc e: Not given Speci men Quali ty: Adequ ate Resul t: No oroph aryng eal patho gens recov ered. Not Available Not Available 09/14/2024 10:56:48 08/12/19 25 08/14/2024 Strep tococ cus pyoge raúl [Pres ence] in Throa t by Organ ism speci fic cultu re Unknown Analyte Perfor sage Organi zation Inform ation: Site ID: [facility] Addres s[facility] [id number] [place] [address] Direct or: Robyn-L ieu Thi Vo Not Available Not Available 10:56:48 08/12/19 25 08/11/2024 Influ daniel virus A and B and SARS- CoV+S ARS-C oV-2 (COVI D-19) Ag panel - Upper respi rator y speci men by Rapid immun oassa y sars-cov+valerie s-cov-2 (covid-19) Ag [presence] in respiratory system specimen by rapid immunoassay NEGATI VE text: negati ve Not Available Not Available 09/14/2024 10:56:48 08/12/19 25 08/11/2024 Influ daniel virus A and B and SARS- CoV+S ARS-C oV-2 (COVI D-19) Ag panel - Upper respi rator y speci men by Rapid immun oassa y influenza virus A Ag [presence] in nasopharynx by immunoassay NEGATI VE text: negati ve Not Available Not Available 09/14/2024 10:56:48 08/12/19 25 08/11/2024 Influ daniel virus A and B and SARS- CoV+S ARS-C oV-2 (COVI D-19) Ag panel - Upper respi rator y speci men by Rapid immun oassa y influenza virus B Ag [presence] in nasopharynx by immunoassay NEGATI VE text: negati ve Not Available Not Available 09/14/2024 10:56:48 08/12/19 25 08/11/2024 Influ daniel virus A and B and SARS- CoV+S ARS-C oV-2 (COVI D-19) Ag panel - Upper respi rator y speci men by Rapid immun oassa y service comment VALID text: valid Not Available Not Available 09/14/2024 10:56:48 08/12/19 25 08/11/2024 Strep tococ cus pyoge raúl Ag [Pres ence] in Throa t streptococcu s pyogenes Ag [presence] in throat NEGATI VE text: negati ve Not Available Not Available 09/14/2024 10:56:48 08/12/19 25 08/11/2024 Strep tococ cus pyoge raúl Ag [Pres ence] in Throa t service comment VALID text: valid Not Available Not Available 09/14/2024 10:56:48 04/11/20 23 04/11/2023 MAMMO , diagn ostic , digit al, bilat eral No observ ation record ed. [address] [place], [address], 04/18/2023 11:39:50 10/13/19 25 10/10/2024 MAMMO , scree nils, digit al, bilat eral No observ ation record ed. [email or web address] [address] [place], [address], 10/21/2024 15:28:24 Result Notes None recorded. Problems Name Problem SNOMED Code Status Onset Date Resolution Date Notes Provider Name and Address Organization Details Recorded Time Elevated blood-pr essure reading without diagnosi s of hyperten daiana 116736410 Completed 05/28/2016 Gwendolyn Le MD Attn: Gtaito campos,[address] [facility], [place], [address], [facility] - [facility]IF 7 15:01:40 Obesity 143368008 Active Gwendolyn Le MD Attn: Gatito campos,[address] [facility], [place], [address], [facility] - [facility] 2 09:46:13 Hypergly cemia 77608537 Completed 05/28/2016 Gwendolyn Le MD Attn: Gatito campos,[address] [facility], [place], [address], [facility] - [facility] 7 15:02:05 Diabetes mellitus 85151756 Active Gwendolyn Le MD Attn: Gatito campos,[address] 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 Active Miriam Peterson null, [place] - [facility] 1 14:21:50 Nonspeci fic tubercul in test reaction 530027384 Completed 01/15/2018 Gwendolyn Le MD Attn: Gatito campos,[address] [place], [address], [place] [facility] 8 09:17:04 Pruritus of vagina 03886386 Active Miriam Peterson null, [place] - [facility] 1 14:21:51 Acute sciatica 571410855 Completed 05/28/2016 Gwendolyn Le MD Attn: Gatito beth,[address] [place], [address], [place] - [facility] 7 15:01:12 Asthma 226265397 Active Gwendolyn Le MD Attn: Xavieryasmeen campos,[address] [place], [address], [place] [facility] 2 09:46:13 Chronic back pain 014359540 Active DDD-seein g pain mx/neuro Gwendolyn Le MD Attn: Gatito beth,[address] [place], [address], [place] - [facility] 4 10:14:31 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 scl 70-positi ve- evaluated by rheum-see ing another rheumat Gwendolyn Le MD Attn: Xavieryasmeen campos,[address] [place] [address], [address], [place] - [facility] 2 09:46:13 Fibromya lgia 152507909 Active 2018 Gwendolyn Le MD Attn: Gatito beth,[address] [place], [address], [place] - [facility] 2 09:46:13 Liver function tests outside referenc e range 230873296 Active 2020 hepatitis panel-neg / liver us-ct Gwendolyn Le MD Attn: Gatito campos,[address] [facility], [place], [address], [facility] - [facility] 2 09:46:13 Rheumato id reginaldo carter 40806580 Active 2021 Gwendolyn Le MD Attn: Accountyasmeen g,[address], [place], [address], [facility] - [facility] 2 15:26:52 Problem Notes None recorded. Procedures Surgical History Date Name Laterality Status Provider Name and Address Organization Details Recorded Time 09/16/19 17 Most Recent Mammogram completed Gwendolyn Le MD Attn: Accounting,[address] [facility], [place], [address], [facility] - [facility] 11/07/2016 13:51:09 07/14/18 89 Total hysterectomy completed Lorraine Yates [place] - [facility] 10/01/2016 15:58:17 Tubal Ligation completed Nita Gar [facility] 01/04/2015 14:33:56 Breast Surgery completed Nita Gar MA [facility] 01/04/2015 14:33:56 Dilation and Curettage completed Nita Gar MA [facility] 01/04/2015 14:33:56 Hysterectomy completed Nita Gar MA [facility] 01/04/2015 14:33:56 Imaging Results None recorded. Procedure Notes None recorded. Medical Equipment None Reported. Allergies Allergen ID Allergen Name Allergen Category Reaction Reaction Severity Criticality Documentation Date Start Date Code Code System Note Provider Name and Address Organization Details Recorded Time 317261 codeine medicatio n vomiting Not available Not available 11/06/2018 2670 RxNorm synth etic chantali ne Juanis Colon RN null, [place] - [facility] 9 10:33:49 530868 tetracycl ine medicatio n Not available Not available Not available 03/19/2023 17702 RxNorm Sherrill Scott LPN null, [place] - [facility] 3 14:29:28 [address] iodine medicatio n Not available Not available Not available 01/04/2015 5933 RxNorm Nita Gar DANETTE null, [place] - [facility] 5 14:36:53 46012 Benadryl medicatio n Not available Not available Not available 01/04/2015 68382 7 RxNorm Nita Gar [place], [place] - [facility] 5 14:36:53 425[address] Lyrica medicatio n Not available Not available Not available 01/04/2015 34569 1 RxNorm DANETTE Yu, JERRY - [facility] 5 14:36:53 Medications Name Sig Start Date Stop Date Status Note LastModified by Organization Details LastModified Time telmisart an 40 mg-hydroc hlorothia zide 12.5 mg tablet Take 1 tablet every day by oral route. 09/26 completed Not Available Not Available Not Available losartan 50 mg tablet Take 1 tablet every day by oral route. active Not Available Not Available No t Available cyclobenz aprine 10 mg tablet Take 1 tablet every day by oral route at bedtime. 05/05 completed Not Available Not Available Not Available amoxicill in 500 mg capsule TAKE 1 CAPSULE BY MOUTH THREE TIMES DAILY FOR 7 DAYS 05/05 completed complete d Not Available Not Available Not Available metformin 500 mg tablet TAKE 1 TABLET BY MOUTH THREE TIMES DAILY active Not Available Not Available No t Available diclofena c 3 % topical gel 01/01 completed Not Available Not Available Not Available prednison e 10 mg tablet 02/04 completed Not Available Not Available Not Available sulfasala zine 500 mg tablet TAKE 1 TABLET BY MOUTH TWICE DAILY 05/04 completed Not Available Not Available Not Available nabumeton e 750 mg tablet TAKE 1 TABLET BY MOUTH TWICE DAILY 12/29 completed not taking Not Available Not Available Not Available atorvasta tin 10 mg tablet Take 1 tablet every day by oral route. 09/26 completed Not Available Not Available Not Available lisinopri l 20 mg-hydroc hlorothia zide 12.5 mg tablet TAKE 1 TABLET BY MOUTH EVERY DAY 10/14 completed not taking Not Available Not Available Not Available pravastat in 40 mg tablet Take 1 tablet every day by oral route active leg cramps Not Available Not Available Not Available ofloxacin 0.3 % eye drops INSTILL 1 DROP THREE TIMES DAILY STARTING 2 DAYS AFTER SURGERY, CONTINUE FOR 1 WEEK AFTER 10/04 completed not using Not Available Not Available Not Available tizanidin e 4 mg tablet TAKE 1 TABLET BY MOUTH ONCE DAILY active Not Available Not Available No t Available fluconazo le 150 mg tablet Take 1 tablet every day by oral route for 1 day. active Not Available Not Available No t Available benzonata te 200 mg capsule Take 1 capsule 3 times a day by oral route as needed. 10/18 completed Not Available Not Available Not Available valacyclo vir 1 gram tablet TAKE 1 TABLET BY MOUTH EVERY 12 HOURS FOR 1 DAY 06/10 completed Not Available Not Available Not Available hydrocodo ne 5 mg-acetam inophen 325 mg tablet 10/01 completed Not Available Not Available Not Available minocycli ne 100 mg capsule TAKE 1 CAPSULE BY MOUTH TWICE DAILY 10/04 completed Not Available Not Available Not Available meloxicam 15 mg tablet TAKE 1 TABLET BY MOUTH ONCE DAILY active Not Available Not Available No t Available ondansetr on HCl 4 mg tablet TAKE 1 TABLET BY MOUTH EVERY 6 HOURS 05/05 completed Not Available Not Available Not Available Tubersol 5 tub. unit/0.1 mL intraderm al injection solution Administ er .1ml interder gene 06/09 completed Not Available Not Available Not Available prednison e 5 mg tablet TAKE 1 TABLET BY MOUTH EVERY OTHER DAY FOR 30 DAYS active Not Available Not Available No t Available Zithromax Z-Lionel 250 mg tablet TAKE 2 TABLETS (500 MG) BY ORAL ROUTE ONCE DAILY FOR 1 DAY THEN 1 TABLET (250 MG) BY ORAL ROUTE ONCE DAILY FOR 4 DAYS 01/01 completed Not Available Not Available Not Available sumatript an 50 mg tablet TAKE ONE TABLET BY MOUTH AT ONSET OF MIGRAINE . IF SYMPTOMS PERSIST, A SECOND DOSE MAY BE TAKEN IN 2 HOURS. DO NOT EXCEED 2 DOSES IN A 24 HOUR PERIOD, UNLESS OTHERWIS E INSTRUCT ED BY YOUR PHYSICIA N 05/05 completed Not Available Not Available Not Available Accu-Chek Softclix Lancets active Not Available Not Available Not Available valsartan 80 mg tablet Take 1 tablet every day by oral route. 05/04 completed tired /sleepy -stopped taking it.03/05- pt trying 1/[address] RAIN Not Available Not Available Not Available leflunomi de 10 mg tablet TAKE 1 TABLET BY MOUTH ONCE DAILY 01/18 completed Not Available Not Available Not Available acetamino phen 300 mg-codein e 30 mg tablet TAKE 1 TABLET BY MOUTH EVERY 6 HOURS NEEDED FOR PAIN 05/04 completed Not Available Not Available Not Available amlodipin e 5 mg tablet active Not Available Not Available Not Available leflunomi de 20 mg tablet TAKE 1 TABLET BY MOUTH ONCE DAILY active Not Available Not Available No t Available tramadol 50 mg tablet Take 1 tablet every day by oral route as needed. 02/04 completed Not Available Not Available Not Available triamcino lone acetonide 0.1 % topical cream APPLY A THIN LAYER OF CREAM EXTERNAL LY TO THE AFFECTED AREA(S) TWICE DAILY active PRN Not Available Not Available No t Available amoxicill in 500 mg tablet Take 1 tablet every 8 hours by oral route for 7 days. 10/18 completed Not Available Not Available Not Available baclofen 20 mg tablet TAKE 1 TABLET BY MOUTH 3 TIMES DAILY 02/17 completed not taking Not Available Not Available Not Available dexametha sone sodium phosphate 0.1 % eye drops INSTILL 1 DROP INTO EACH EYE THREE TIMES DAILY 10/04 completed not using Not Available Not Available Not Available ketorolac 0.5 % eye drops INSTILL 1 DROP THREE TIMES DAILY STARTING 2 DAYS BEFORE SURGERY, CONTINUE FOR 2 WEEKS AFTER 10/04 completed not using Not Available Not Available Not Available ofloxacin 0.3 % ear drops INSTILL 10 DROPS INTO AFFECTED EAR(S) BY OTIC ROUTE ONCE DAILY 02/23 completed Not Available Not Available Not Available amoxicill in 875 mg tablet TAKE 1 TABLET BY MOUTH TWICE DAILY FOR 7 DAYS active Not Available Not Available No t Available prednisol one acetate 1 % eye drops,daphne pension INSTILL 1 DROP THREE TIMES DAILY STARTING AFTER SURGERY, CONTINUE FOR 3 WEEKS 10/04 completed not using Not Available Not Available Not Available methocarb mayda 750 mg tablet Take one tablet by outh twice daily active GI upset Not Available Not Available No t Available methotrex ate sodium 2.5 mg tablet TAKE 4 TABLETS BY MOUTH ONCE A WEEK 10/18 completed not taking Not Available Not Available Not Available cephalexi n 500 mg capsule Take 1 capsule 3 times a day by oral route for 7 days. active Not Available Not Available No t Available metformin 1,000 mg tablet TAKE 1 TABLET BY MOUTH TWICE DAILY 10/14 completed taking 1 tab daily Not Available Not Available Not Available ranitidin e 150 mg tablet Take 1 tablet twice a day by oral route. 07/04 completed Not Available Not Available Not Available clotrimaz ole-betam ethasone 1 %-0.05 % topical cream active Not Available Not Available Not Available losartan 25 mg tablet TAKE 1 TABLET BY MOUTH ONCE DAILY active Not Available Not Available No t Available hydrochlo rothiazid e 12.5 mg capsule Take 1 capsule every day by oral route. 08/15 completed one time use to take with losarton 50 mg Not Available Not Available Not Available gabapenti n 300 mg capsule Take 1 capsule every day by oral route at bedtime. 07/04 completed Not Available Not Available Not Available buspirone 7.5 mg tablet TAKE 1 TABLET BY MOUTH TWICE DAILY NEEDED 05/10 completed Not Available Not Available Not Available folic acid 1 mg tablet TAKE 1 TABLET BY MOUTH ONCE DAILY FOR 30 DAYS 05/04 completed pt states she isn't taking at this time, Not Available Not Available Not Available etodolac 400 mg tablet Take 1 tablet twice a day by oral route. 06/[address] Rosa - Rheumato logist- not taking Not Available Not Available Not Available hydroxyzi ne HCl 25 mg tablet TAKE 1 TABLET BY MOUTH TWICE DAILY NEEDED active Takes 1/2 daily, PRN Not Available Not Available Not Available hydroxych loroquine 200 mg tablet TAKE 1 TABLET BY MOUTH TWICE DAILY WITH FOOD 05/03 completed rheum Not Available Not Available Not Available ibuprofen 600 mg tablet TAKE 1 TABLET BY MOUTH TWICE DAILY NEEDED 04/19 completed not taking Not Available Not Available Not Available lovastati n 20 mg tablet active Not Available Not Available Not Available methylpre dnisolone 4 mg tablets in a dose pack TAKE BY MOUTH DIRECTED ON INSIDE OF PACKAGE 01/26 completed Not Available Not Available Not Available SSD 1 % topical cream APPLY CREAM TOPICALL Y TWICE DAILY 04/19 completed never used Not Available Not Available Not Available losartan 50 mg-hydroc hlorothia zide 12.5 mg tablet TAKE 1 TABLET BY MOUTH ONCE DAILY*PT NEEDS APPOINTM ENT* 12/30 completed pt does not want to take any kind of a lorsarta n Not Available Not Available Not Available cefdinir 300 mg capsule active Not Available Not Available Not Available piroxicam 20 mg capsule TAKE 1 CAPSULE BY MOUTH ONCE DAILY FOR 30 DAYS 02/17 completed caused constipa tion- not taking Not Available Not Available Not Available fluticaso ne propionat e 50 mcg/actua tion nasal spray,daphne pension active Not Available Not Available Not Available amoxicill in 875 mg-potass ium clavulana te 125 mg tablet TAKE 1 TABLET BY MOUTH EVERY 12 HOURS FOR 7 DAYS active Not Available Not Available No t Available Ventolin HFA 90 mcg/actua tion aerosol inhaler Inhale 2 puffs every 4 hours by inhalati on route as needed. 06/11 completed not using Not Available Not Available Not Available esomepraz ole magnesium 20 mg capsule,d elayed release Take 1 capsule every day by oral route. 01/18 completed OTC- Nexium Not Available Not Available Not Available Blood Glucose Test strips TEST 3 TIMES DAILY. active Not Available Not Available No t Available nitrofura ntoin monohydra te/macroc rystals 100 mg capsule TAKE 1 CAPSULE BY MOUTH EVERY 12 HOURS FOR 7 DAYS 04/19 completed Not Available Not Available Not Available duloxetin e 30 mg capsule,d elayed release TAKE 1 CAPSULE BY MOUTH ONCE DAILY 04/19 completed Not Available Not Available Not Available Victoza 2-Lionel 0.6 mg/0.1 mL (18 mg/3 mL) subcutane ous pen injector INJECT 0.6 MG UNDER THE SKIN DAILY 01/18 completed Not Available Not Available Not Available Flonase Allergy Relief active Not Available Not Available Not Available Ozempic 0.25 mg or 0.5 mg (2 mg/1.5 mL) subcutane ous pen injector INJECT 0.5 MG SUBCUTAN EOUSLY EVERY WEEK 09/03 completed Not Available Not Available Not Available Paxlovid 300 mg (150 mg x 2)-100 mg tablets in a dose pack Take 1 dose pk twice a day by oral route as directed . 01/18 completed Not Available Not Available Not Available Paxlovid 150 mg-100 mg tablets in a dose pack (Moderate Renal Dose) Take 1 dose pk twice a day by oral route for 5 days. 10/18 completed Not Available Not Available Not Available Vitals Date Recorded Body height Body mass index (BMI) Body weight Heart rate Respiratory rate Body temperature Oxygen saturation Oxygen saturation in Arterial blood by Pulse oximetry Systolic And Diastolic Provider Name and Address Organization Details Last Updated DateTime 5 158.75 cm 32.7 kg/m2 36285.0 2 g 86 /min 14 /min 97.2 [degF] 95 % 95 % 126/81 mm[Hg] Lorraine Yates MA [facility] 5 11:33:40 Date Recorded Body height Body mass index (BMI) Body weight Heart rate Respiratory rate Body temperature Oxygen saturation Oxygen saturation in Arterial blood by Pulse oximetry Systolic And Diastolic Provider Name and Address Organization Details Last Updated DateTime 4 158.75 cm 32 kg/m2 94123.4 4 g 97 /min 16 /min 98 [degF] 97 % 97 % 128/86 mm[Hg] ROLO Bowen [facility] 4 15:06:27 Date Recorded Body height Body mass index (BMI) Body weight Heart rate Respiratory rate Body temperature Oxygen saturation Oxygen saturation in Arterial blood by Pulse oximetry Systolic And Diastolic Provider Name and Address Organization Details Last Updated DateTime 4 158.75 cm 31.9 kg/m2 10311.2 9 g 90 /min 14 /min 97.2 [degF] 96 % 96 % 133/85 mm[Hg] Lorraine Yates MA [facility] 4 08:52:36 Date Recorded Systolic And Diastolic Provider Name and Address Organization Details Last Updated DateTime 09/24/2023 145/88 mm[Hg] Gwendolyn Le MD Attn: Accounting,[address] [facility], [place], [address], [facility] 09/24/2023 10:23:00 Date Recorded Body height Body mass index (BMI) Body weight Heart rate Body temperature Oxygen saturation Oxygen saturation in Arterial blood by Pulse oximetry Systolic And Diastolic Provider Name and Address Organization Details Last Updated DateTime 4 158.75 cm 31.8 kg/m2 96870.1 3 g 92 /min 97.7 [degF] 98 % 98 % 172/92 mm[Hg] Bernie Massey MA [facility] 4 09:57:32 Date Recorded Body height Body mass index (BMI) Body weight Heart rate Respiratory rate Body temperature Oxygen saturation Oxygen saturation in Arterial blood by Pulse oximetry Systolic And Diastolic Provider Name and Address Organization Details Last Updated DateTime 4 158.75 cm 32.6 kg/m2 00837.6 6 g 96 /min 14 /min 97.4 [degF] 98 % 98 % 138/84 mm[Hg] Lorraine Yates MA [facility] 4 10:11:27 Social History Question Answer Notes LastModified by Organizat ion Details LastModified Time Tobacco Smoking Status Never Smoker Nita Gar MA null, [facility] 01/04/2015 14:33:57 Do You Have An Advance Directive? No Information not available 12/29/2020 Are You Blind Or Do You Have Difficulty Seeing? No Glasses Information not available 10/18/2021 What Is Your Level Of Caffeine Consumption? Moderate Coffee Daily, Tea Information not available 04/19/2020 How Much Tobacco Do You Chew? None Information not available 01/24/2016 In The 14 Days Before Symptom Onset, Have You Had Close Contact With A Laboratory-confir med COVID-19 While That Case Was Ill? No Information not available 02/04/2024 In The 14 Days Before Symptom Onset, Have You Had Close Contact With A Person Who Is Under Investigation For COVID-19 While That Person Was Ill? 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 No Information not available 02/04/2024 Are You Deaf Or Do You Have Serious Difficulty Hearing? No [email or web address] Information not available 05/27/2020 What Type Of Diet Are You Following? DIABETIC Information not available 10/01/2016 Which Illicit Or Recreational Drugs Have You Used? Denies Information not available 01/24/2016 Education 12 Information no t available 10/01/2016 What Is The Highest Grade Or Level Of School You Have Completed Or The Highest Degree You Have Received? [id number] [email or web address] Information not available 05/27/2020 Are There Any Guns Present In Your Home? No Information not available 06/09/2019 Marital Status Informatio n not available 01/24/2016 What Was The Date Of Your Most Recent Tobacco Screening? 05/05/2024 Information not available 05/05/2024 Performs Monthly Self-breast Exam? Yes Information no t available 12/08/2019 What Is Your Relationship Status? [email or web address] Information not available 05/27/2020 Do You Use Your Seat Belt Or Car Seat Routinely? No [email or web address] Information not available 05/27/2020 Seat Belts Used Routinely Yes Information not available 06/09/2019 Smoke Alarm In Home Yes Information not available 06/09/2019 Do You Have Smoke And Carbon Monoxide Detectors In Your Home? Yes [email or web address] Information not available 05/27/2020 How Much Tobacco Do You Smoke? No Information not available 06/09/2019 General Stress Level Low Information not available 05/10/2020 Do You Use Sunscreen Routinely? No Information not available 06/09/2019 Has Tobacco Cessation Counseling Been Provided? No Information not available 10/18/2021 Sex: Female Functional Status Question Answer Note LastModified by Organizat ion Details LastModified Time Do you use any illicit or recreational drugs? No [email or web address] Information not available 06/10/2020 Do you or have you ever used any other forms of tobacco or nicotine? No [email or web address] Information not available 06/10/2020 What is your level of alcohol consumption? None [email or web address] Information not available 01/04/2015 Do you or have you ever used smokeless tobacco? Never used smokeless tobacco Information not available 06/09/2019 Are you currently employed? Yes Community living options & help @ home Information not available 05/03/2021 Are you able to care for yourself independently? 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 Never used electronic cigarettes Information not available 06/09/2019 What is your exercise level? Occasional walking [email or web address] Information not available 05/10/2023 Mental Status Question Answer Note LastModified by Organization D etails LastModified Time Do you feel stressed (tense, restless, nervous, or anxious, or unable to sleep at night)? [id number] [email or web address] Information not available 05/27/2020 Family History Relationship Description Onset Age of this Age Resolved Age Notes LastModified by Organization Details LastModified Time Father Harmful pattern of use of alcohol Not available 2015 11:52:03 Father Heart disease Not available 2015 11:52:03 Father Essential hypertension Not available 02/2016 11:52:03 Father Family history of malignant neoplasm of prostate Not available 2015 11:52:03 Father Family history of coronary arterioscler osis Not available 2015 11:52:03 Mother Asthma Not available 11:52:03 Mother Heart disease Not available 2015 11:52:03 Mother Essential hypertension Not available 02/2016 11:52:03 Mother Osteoporosis Not availa ble 01/24/2016 11:52:03 Sister Migraine Not available 01/24/2016 11:52:03 Sister Family history of breast cancer Not available 2015 11:52:03 Sister Chronic obstructive pulmonary disease [email or web address] Not available 2018 08:39:54 Brother Migraine Not available 01/24/2016 11:52:03 Brother Chronic obstructive pulmonary disease [email or web address] Not available 2018 08:39:28 Brother Pulmonary emphysema [email or web address] Not available 2018 08:39:41 Medical History Condition Response Coronary Artery Disease N High Blood Pressure N Atrial Fibrillation N Kidney or Bladder Problems N Thyroid Problems N GI Problems N Depression N COPD N Blood Clots N Skin Problems N Anemia N Heart Attack (PR) N Anxiety Disorder N Diabetes Y Muscle, Joint, or Bone Problems Y Seizures/Epilepsy N Acid Reflux (GERD) Y Cancer Y Stroke N Asthma Y Allergies Y High Cholesterol Y Hepatitis N Liver Disease N Headaches N Heart Failure N Osteoporosis Y Gynecological History Statement/Question Response Most Recent Mammogram 09/15/2016 Obstetrics History GPAL:G 0 P 0 0 0 0 Immunizations Vaccine Type Date Status Note Provider Nam e and Address Organization Details Recorded Time COVID-19, mRNA, LNP-S, PF, 30 mcg/0.3 mL dose 1 completed Miriam Peterson null, [place] - [facility] 02/17/2021 08:39:10 COVID-19, mRNA, LNP-S, PF, 30 mcg/0.3 mL dose 1 completed Miriam [place], [place] [facility] 02/17/2021 08:39:19 Influenza, split virus, quadrivalent, preservative 1 completed Miriam [place], [place] [facility] 02/17/2021 08:40:57 Influenza, split virus, quadrivalent, preservative 7 completed Not Available [facility] 05/02/2019 02:34:25 Influenza, split virus, quadrivalent, preservative 8 completed Not Available [facility] 05/02/2019 02:47:59 Influenza, split virus, quadrivalent, preservative 9 completed Not Available [facility] 05/02/2019 02:38:15 Influenza, split virus, quadrivalent, preservative 0 completed Edilia Ramirez RN null, [place] [facility] 01/29/2020 09:10:37 COVID-19, mRNA, LNP-S, PF, 30 mcg/0.3 mL dose 1 completed Kike Lua [place], [place] [facility] 03/03/2021 11:43:13 influenza, unspecified formulation 6 completed Not Available [facility] 05/13/2020 18:23:17 COVID-19, mRNA, LNP-S, PF, 30 mcg/0.3 mL dose, tamara-sucrose 2 completed Kike Lua [place], [place] [facility] 11/23/2021 12:32:35 Influenza, split virus, quadrivalent, PF 5 completed Not Available [facility] 05/02/2019 02:40:54 Pneumococcal conjugate PCV20, polysaccharide [id number] conjugate, adjuvant, PF 2 completed Gwendolyn Le MD Attn: Accounting,[address] [facility], [place], [address], [place] [facility] 01/26/2022 15:26:13 Influenza, high-dose, quadrivalent, PF 2 completed Gwendolyn Le MD Attn: Accounting,[address] [facility], [place], [address], [place] [facility] 02/23/2022 14:24:32 Influenza, high-dose, quadrivalent, PF 3 completed Gwendolyn Le MD Attn: Accounting,[address] [place], [address], [place] [facility] 01/18/2023 16:15:22 Tdap 5 completed Not Available [facility] 05/02/2019 02:41:30 Influenza, high-dose, trivalent, PF 4 completed Gwendolyn Le MD Attn: Accounting,[address] [place], [address], [place] [facility] 02/04/2024 11:23:16 Past Encounters Encounter ID Performer Location Encounter Start Date Encounter Closed Date Diagnosis/Indication Diagnosis SNOMED-CT Code Diagnosis ICD10 Code Diagnosis IMO Codes Diagnosis Note [id number] MD Mercedes [facility] (Adult Med) [address] [place] [address] 01/04/2015 13:58:39 01/04/2015 15:10:04 Elevated blood-pressure reading without diagnosis of hypertension 436732047 low salt diet Reassess in 3 wks ( taking otc sinus meds which may be contributi ng to elevated bp) Administra tion of influenza vaccine [id number] Screening for malignant neoplasm of colon 728750984 Adult heal th examination 982976577 pt needs to have Tdap when it is available Obesity 546797263 diet and exercise to loose wt [id number] [facility] [address] [place] [address] 01/25/2015 13:57:22 01/25/2015 15:50:04 Diabetes mellitus 12706369 E11.9 newly diagnosed, but pt said she was on Metformine in the past ADA diet pt to see eye doctor every year Essential hypertension 86914064 I10 start pt on Losarton Administra tion of diphtheria, pertussis, and tetanus vaccine 140826143 Z23 [id number] [facility] [address] [place] [address] 02/22/2015 08:48:22 02/22/2015 09:37:45 Cellulitis 130969975 L03.115 of knee area keep area clean and dry topical triple antibiotic ointment Keflex tid for 1 wk Tuberculos is screening 017290544 Z11.1 pt needs ppd for job Essential hypertension 99069313 I10 started on Losarton-c ontinue same keep f/u to reassess [id number] MD Prince Szymanski (Adult Med) [address] [place] [address] 03/01/2015 10:42:51 03/11/2015 10:55:21 Nonspecific tuberculin test reaction 657862012 R76.11 [id number] MD Prince Szymanski (Adult Med) [address] [place] [address] 03/29/2015 11:16:51 03/30/2015 12:21:04 Diabetes mellitus 54184671 E11.9 newly diagnosed, but pt said she was on Metformine in the past ADA diet pt to see eye doctor every year add statin and baby asa Essential hypertension 85321152 I10 started on Losarton-c ontinue same Screening for malignant neoplasm of colon 266901004 Z12.11 pt wants to wait for colonoscop y due to insurance change check stool kit [id number] MD Mercedes [facility] (Adult Med) [address] [place] [address] 08/09/2015 11:47:15 08/09/2015 15:58:38 Acute sciatica 093805525 M54.31 Avoid lifting and bending Heat therapy Essential hypertension 79091946 I10 pt is not taking Losarton for 3 wks due to insurance issue pt to restart Losarton reassess in 3 wks Diabetes mellitus 594654 09 E11.9 pt to restart Metformine /statin ADA diet pt to see eye doctor every year pt to take baby asa labs prior to visit [id number] [facility] [address] [place] [address] 09/13/2015 11:47:54 09/13/2015 14:48:24 Diabetes mellitus 55110563 E11.9 pt to continue Metformine /statin ADA diet pt to see eye doctor every year pt to take baby asa Essential hypertension 68248653 I10 change Losarton to Losaronhct Asthma 423421714 J45.90 9 uses albuterol prn [id number] [facility] [address] [place] [address] 11/15/2015 13:42:04 11/16/2015 11:12:50 Diabetes mellitus 53653021 E11.9 pt to continue Metformine pt did not tolerate pravastati n - will try lovastatin ADA diet pt to see eye doctor every year pt to start baby asa Essential hypertension 68030570 I10 change Losarton to Losaronhct Asthma 690231871 J45.90 9 uses albuterol prn Chronic back pain 929962 002 M54.5 Did not tolerate Robaxin Try Cyclobenza pari [id number] MD Prince Szymanski (Adult Med) [address] [place] [address] 01/24/2016 10:55:43 01/24/2016 12:36:39 Essential hypertension 65235314 I10 continue Losartanhc t Diabetes mellitus 932075 09 E11.9 pt to continue Metformine pt did not tolerate pravastati n - continue lovastatin ADA diet pt to see eye doctor every year pt to continue baby asa Add Gabapentin hs for leg cramps Screening for malignant neoplasm of colon 503550981 Z12.11 pt wants to wait for colonoscop y due to insurance change check stool kit [id number] [facility] [address] [place] [address] 05/28/2016 14:37:25 05/28/2016 16:35:52 Essential hypertension 60569757 I10 pt is not taking med due to recent Gastroente ritis advised pt to go back on it -continue Losartanhc t Diabetes mellitus 299257 09 E11.9 pt to continue Metformine (pt did not tolerate pravastati n )- continue lovastatin ADA diet pt to see eye doctor every year pt to continue baby asa Chronic back pain 186012 002 M54.5 Did not tolerate Robaxinwil l try Bacofen tid ( flexeril make her drowsy)pt to call if she wants to go for PT Screening mammography 24 015708 Z12.31 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 [employer] [id number] [facility] [address] [place] [address] 10/01/2016 15:25:26 10/02/2016 12:15:42 Essential hypertension 71217715 I10 pt to continue Losartanhc t Diabetes mellitus 486111 09 E11.9 pt to continue Metformine (pt did not tolerate pravastati n )- continue lovastatin ADA diet pt to see eye doctor every year pt to continue baby asa Chronic back pain 026606 002 M54.5 Did not tolerate Robaxinpt to try PT [id number] MD Mercedes [facility] (Adult Med) [address] [place] [address] 02/04/2017 15:40:10 02/11/2017 08:57:32 Administration of influenza vaccine 92025642 Z23 Essential hypertension 75238935 I10 pt to continue Losartanhc t Diabetes mellitus 442733 09 E11.9 stable on metformine Chronic back pain 761612 002 M54.5 pt is seeing ortho who did MRI which showed arthritis and fracture per pt - recommende d sx , but pt wants to wait for now Screening for malignant neoplasm of colon 793847859 Z12.11 [id number] MD Mercedes S[facility] (Adult Med) [address] [place] [address] 06/11/2017 08:18:16 06/12/2017 16:24:17 Essential hypertension 79780740 I10 pt to continue Losartanhc t(pt has 50 mg of Losarton (#90) at home , wants to get 12.5 mg hctz to take with it ) Diabetes mellitus 455688 09 E11.9 stable on metformine [id number] [facility] [address] [place] [address] 08/15/2017 08:11:05 08/16/2017 11:53:33 Diabetes mellitus 68899084 E11.9 stable on metformine Gastroesop hageal reflux disease 585132673 K21.9 pt to try ranitidine firstDiscu ssed about chronic use of ppi -pt to use ppi for bad symptoms Essential hypertension 32327002 I10 pt to continue Losartanhc t [id number] [facility] [address] [place] [address] 01/15/2018 08:30:40 01/20/2018 10:58:06 Administration of influenza vaccine 15697033 Z23 Essential hypertension 49432632 I10 pt to continue Losartanhc t Diabetes mellitus 118250 09 E11.9 stable on metformine Chronic back pain 659005 002 M54.5 pt is seeing ortho who did MRI which showed arthritis and fracture per pt - recommende d sx , but pt wants to wait for now Asthma 932810789 J45.90 9 uses albuterol prn Tuberculos is screening 984210407 Z11.1 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 M79.6 41 M79.642 started on gabapentin as well [id number] [facility] [address] [place] [address] 07/04/2018 08:21:44 07/07/2018 09:33:58 Essential hypertension 81360430 I10 not well contrlled due to noncomplia nt with med -pt stopped med due to recallpt to start telmisatan hct Diabetes mellitus 953082 09 E11.9 stable on metformine pt to d/c lovastatin ( stomach ache )pt to start atorvastat in 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.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 check xray and labs to r/o inflammato ry arthritis Screening for malignant neoplasm of colon 848372715 Z12.11 declined colonoscop y [id number] [facility] [address] [place] [address] 09/26/2018 11:53:03 09/29/2018 14:19:06 Acute bronchitis 64696533 J20.9 keep good hydration [id number] [facility] [address] [place] [address] 01/01/2019 08:50:17 01/02/2019 08:59:57 Essential hypertension 77806860 I10 not well controlled due to noncomplia nt with med -pt stopped med due to recallpt does not want to take arb group med due to recall( carcinogen ic ). 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 [employer] Anti-nucle ar factor detected 270122673 R76.8 seen by rheumatolo gist and no inflammato ry arthritis [id number] [facility] [address] [place] [address] 01/06/2019 16:07:23 01/07/2019 10:02:21 Tuberculosis screening 287309712 Z11.1 pt needs ppd for job [id number] MD Mercedes [facility] (Adult Med) [address] [place] [address] 02/03/2019 16:08:45 02/04/2019 12:37:34 Administration of influenza vaccine 54200144 Z23 Essential hypertension 89679903 I10 not well controlled due to noncomplia nt with med -pt stopped med due to recallpt does not want to take arb group med due to recall( carcinogen ic ). pt is willing to try lisinopril hct [id number] MD Mercedes Szymanskihalto (Adult Med) [address] [place] [address] 03/02/2019 14:40:08 03/03/2019 12:59:24 Acute otitis media 0973506 H66.91 with bleeding spot on external ear canal [id number] MD Mercedes Szymanskihalto (Adult Med) [address] [place] [address] 06/09/2019 09:08:57 06/10/2019 08:51:10 Essential hypertension 04918857 I10 improving .pt to continue lisinopril hct Diabetes mellitus 358312 09 E11.9 pt to continue metformin as prescribed .pt to continue lovastatin [id number] [facility] [address] [place] [address] 12/08/2019 08:13:28 12/15/2019 08:40:02 Essential hypertension 89579402 I10 pt to continue lisinopril hct Diabetes mellitus 826548 09 E11.9 pt to continue metformin as prescribed .pt to continue lovastatin -noncompli ant with statin -counselle d Acute sinusitis 02474279 J01.90 keep good hydration/ steam inhalation covid-neg per pt . [id number] MD Mercedes Szymanskihalto (Adult Med) [address] [place] [address] 01/29/2020 08:53:52 02/01/2020 11:07:05 Administration of influenza vaccine 55140182 Z23 [id number] MD Mercedes Szymanskihalto (Adult Med) [address] [place] [address] 04/19/2020 08:22:05 04/21/2020 06:12:33 Screening for malignant neoplasm of colon 748485523 Z12.11 declined colonoscop y Essential hypertension 88571052 I10 pt to continue lisinopril hct Diabetes mellitus 947528 09 E11.9 pt to continue metformin as prescribed .pt to continue lovastatin -noncompli ant with statin -counselle d Anti-nucle ar factor detected 136135488 R76.8 seen by rheumattasia ashraf .pt is on etodolac per rheuma/shania id other nsaid [id number] [facility] [address] [place] [address] 05/10/2020 10:13:09 05/11/2020 14:34:32 Acute sinusitis 73521432 J01.90 keep good hydration/ steam inhalation . [id number] [facility] [address] [place] [address] 05/17/2020 08:48:11 05/18/2020 05:55:10 Liver function tests outside reference range 218272150 R94.5 monitor labsstatin on hold Essential hypertension 18362957 I10 with low bp .pt to hold lisinopril hct for now . [id number] [facility] [address] [place] [address] 05/27/2020 08:19:44 05/30/2020 14:19:17 Herpes labialis 5620695 B00.1 pt to use prn valtrex. Night sweats 70441759 R6 1 Advised about general measures like keeping room at cooler temp/ loose clothes [id number] [facility] [address] [facility] [place] [address] 06/10/2020 14:16:50 06/11/2020 22:59:34 Essential hypertension 03012952 I10 with home bp in 90-110.pt to hold lisinopril hct for now . Liver func tion tests outside reference range 090627066 R94.5 improved.m onitor labspt to restart statin . 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 seen by rheumatolo gist .pt is on etodolac per rheuma/shania id other nsaid Renewal of prescription 138325316 Z76.0 [id number] [facility] [address] [place] [address] 12/29/2020 08:54:31 01/05/2021 11:18:54 Upper respiratory infection 70865330 J06.9 keep good hydration /salt water gargle /steam inhalation [id number] [facility] [address] [place] [address] 02/17/2021 08:17:31 02/20/2021 12:30:52 Essential hypertension 81161536 I10 with home bp in 90-110.pt is off of lisinopril hct for now Diabetes mellitus 762810 09 E11.9 pt to continue metformin -reduced to 500mg bidpt to continue lovastatin Add glp1 which helps with wt loss as well Anti-nucle ar factor detected 779198112 R76.8 seen by rheumatolo [facility] .pt is on hydroCq per rheuma Renewal of prescription 035573822 Z76.0 [id number] Joelle Dominguez APN, [facility] (Adult Med) [address] [place] [address] 02/24/2021 10:11:07 02/27/2021 04:54:36 Administration of SARS-CoV-2 antigen vaccine 113918987 Z23 [id number] MD Mercedes Szymanskihalto (Adult Med) [address] [place] [address] 05/03/2021 11:53:16 05/04/2021 12:13:43 Acute sinusitis 57013556 J01.90 keep good hydration/ steam inhalation .continue antihistam ine for allergies [id number] MD [facility] [address] [place] [address] 10/18/2021 09:24:46 10/19/2021 08:23:07 Diabetes mellitus 24567302 E11.9 pt to continue metformin -reduced to 500mg bidpt to continue lovastatin Add glp1 which helps with wt loss as well Essential hypertension 94661719 I10 with home bp in 90-110.pt is off of lisinopril hct for now Screening for malignant neoplasm of colon 066045377 Z12.11 declined colonoscop y Screening mammography 24 765787 Z12.31 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 [employer] Obesity 255034706 E66.9 diet and exercise to loose wt [id number] MD Prince Calix (Adult Med) [address] [place] [address] 11/23/2021 11:58:08 11/24/2021 09:36:13 Administration of SARS-CoV-2 antigen vaccine 625821245 Z23 [id number] [facility] [address] [place] [address] 01/26/2022 12:04:59 01/29/2022 11:32:21 Otalgia of right ear 8126905128 H92.01 - due to trauma -avoid q tip Administra tion of pneumococcal vaccine 19430537 Z23 Essential hypertension 50514446 I10 with home bp in 90-110.pt is off of lisinopril hct for now [id number] MD Prince Szymanski (Adult Med) [address] [facility] [address] 02/23/2022 08:48:12 02/26/2022 09:56:54 Administration of influenza vaccine 33763710 Z23 Essential hypertension 23472262 I10 pt to start low dose valsartan Diabetes mellitus 820090 09 E11.9 pt to continue metformin -reduced to 500mg bidpt to continue lovastatin -pt is on glp1 which helps with wt loss as well Anti-nucle ar factor detected 764366563 R76.8 sees rheumatolo gist [id number] MD [facility] [address] [place] [address] 05/04/2022 10:45:11 05/08/2022 16:27:17 Essential hypertension 39064352 I10 pt tried low dose valsartan which is making her tired and does not want to take it- pt is willing to try amlodipine Diabetes mellitus 279223 09 E11.9 pt to continue metformin -reduced to 500mg bidpt to continue lovastatin -pt is on glp1 which helps with wt loss as well Obesity 276303173 E66.9 diet and exercise to loose wt [id number] MD [facility] [address] [place] [address] 08/03/2022 08:29:39 08/07/2022 16:16:48 Essential hypertension 46620462 I10 fair control-pt tried low dose valsartan which is making her tired and does not want to take it- pt is on amlodipine Diabetes mellitus 162772 09 E11.9 pt to continue metformin -reduced to 500mg bidpt to continue lovastatin -pt is on glp1 which helps with wt loss as well Chronic back pain 591356 002 G89.29 with sciatic pain- pt has apt with pain mx on 08/07-add cyclobenza pari which she tried in the past Anti-nucle ar factor detected 225064822 R76.8 due to possible RA-pt sees rheumatolo gist - trying to get certain med approval from her insurance per pt -pt stopped taking leflunamid e Obesity 725156725 E66.9 diet and exercise to loose wt [id number] MD [facility] [address] [place] [address] 10/04/2022 08:54:04 10/08/2022 15:59:09 Bereavement 43124040 Z63.4 with recent loss of 2 sisters with possible homicide of one sister- willing to see counsellor and to try buspar -does not want addciting med Migraine 43101606 G43.90 9 with recent stress-pt wants to try triptan [id number] Gwendolyn Le MD [facility] (Adult Med) [address] [place] [address] 01/18/2023 14:06:17 01/23/2023 12:43:03 Diabetes mellitus 18381612 E11.9 pt to continue metformin -reduced to 500mg bidpt to continue lovastatin -pt is on glp1 which helps with wt loss as well Essential hypertension 19306127 I10 fair control-pt tried low dose valsartan which is making her tired and does not want to take it- pt is on amlodipine Rheumatoid arthritis 698 83864 M06.9 -sees rheumatolo gist Screening for malignant neoplasm of colon 533792587 Z12.11 declined colonoscop y Paresthesi a of lower extremity 988531593 R20.2 with f/h of MS-pt wants to see neuro Administra tion of influenza vaccine 12761654 Z23 [id number] MD [facility] [address] [place] [address] 05/10/2023 14:41:14 05/15/2023 11:46:56 Allergic contact dermatitis 464184142 L23.9 - pt is allergic to titanium per pt-improve d with topical steroid cream and hydroxyzin e [id number] Gwendolyn Le MD [facility] (Adult Med) [address] [place] [address] 05/21/2023 08:39:51 05/24/2023 15:21:55 Essential hypertension 54168173 I10 -stable-pt tried low dose valsartan which is making her tired and does not want to take it- pt is on amlodipine Diabetes mellitus 058315 09 E11.9 pt to continue metformin -increase to 500mg 2 tab bid -pt does not rx since she has enough pills at home per ptpt to continue lovastatin Chronic back pain 862134 002 G89.29 with sciatic pain- pt sees pain mx-pt is on cyclobenza pari which she tried in the past Rheumatoid arthritis 698 74411 M06.9 -sees rheumatolo gist Overweight 800258617 E66 .3 [id number] [facility] [address] [place] [address] 09/24/2023 09:25:33 09/25/2023 16:14:35 Essential hypertension 16344019 I10 -not well controlled -partially due to back pain -pt monitors bp at home-pt tried low dose valsartan which is making her tired and does not want to take it- pt is on amlodipine Diabetes mellitus 373149 09 E11.9 pt to continue metformin -increased to 500mg 2 tab in am and 1 pm pm -pt does not rx since she has enough pills at home per ptpt to continue lovastatin Chronic back pain 463385 002 G89.29 with sciatic pain- pt sees pain mx-pt is on cyclobenza pari which she tried in the past [id number] MD [facility] [address] [place] [address] 02/04/2024 09:45:08 02/07/2024 13:07:32 Essential hypertension 06416473 I10 - well controlled -pt tried low dose valsartan which is making her tired and does not want to take it- pt is on amlodipine Diabetes mellitus 278759 09 E11.9 pt to continue metformin -increased to 500mg 2 tab in am and 1 pm pmpt to continue lovastatin Rheumatoid arthritis 698 14808 M06.9 -sees rheumatolo gist Administra tion of influenza vaccine 73234449 Z23 [id number] MD [facility] [address] [place] [address] 05/05/2024 10:48:57 05/12/2024 11:01:40 Essential hypertension 58271423 I10 - well controlled -pt tried low dose valsartan which is making her tired and does not want to take it- pt is on amlodipine Diabetes mellitus 365493 09 E11.9 pt to continue metformin -increased to 500mg 2 tab in am and 1 pm pmpt to continue lovastatin Rheumatoid arthritis 698 60442 M06.9 -sees rheumatolo gist Screening for malignant neoplasm of colon 547679240 Z12.11 declined colonoscop y Chronic back pain 955664 002 G89.29 - pt seen by pain mx-change cyclobenza pari to tizanidine Health Concerns Section Related Observation LastModified by Organization Detai ls LastModified Time None Recorded Concern Status LastModified by Organization Details LastModified Time None Recorded Advance Directives Directive N: Payers Insurance Date Sequence Insurance Name Policy Number Policy Celestin Covered Member ID Celestin Member ID Guarantor Name 06/13/2020 1 [employer] - ALLIED BENEFITS - OPEN ACCESS [id number] Sindi Blakely [id number] Sindi Blakely 09/24/2023 1 [employer] - UNICARE [id number] Sindi Blakely [id number] Sindi Blakely 06/13/2020 2 [employer] - [employer] [id number] Sindi Blakely [id number] Sindi Blakely 10/18/2021 2 [employer] - ALLIED BENEFIT SYSTEMS - [facility] - OPEN ACCESS II (PPO) [id number] Sindi Blakely [id number] Sindi Blakely 06/13/2020 1 [employer] [id number] Sindi Blakely [id number] Sindi Blakely 02/23/2022 1 [facility] [place] - SELECT (PPO) [id number] Sindi Blakely [id number] Sindi Blakely 06/13/2020 1 [employer] [id number] Sindi Blakely [id number] Sindi Blakely 06/13/2020 1 [employer] - ALLIED BENEFITS - OPEN ACCESS [id number] Sindi Blakely [id number] Sindi Blakely Notes Date Note Type Note Provider Name and Address Organization Details Recorded Time 05/10/2023 text/html General Rash/Ski n LesionReported by PatientHPIFor quality, patient reportsitchyandlocali zed. For context, patient reportsnew detergent or skin product (titanium marker for mmg). For severity, patient reportsimproving (almost gone). For duration, patient reportshas noted for 2-3 weeks. For associated symptoms, patient reportsno fever. For location, (under breast). Gwendolyn Le MD Attn: [address]ing[address] [place], [address], [place] - [facility] 05/10/2023 16:04:07 05/21/2023 text/html Diabetes F/URepo rted by PatientHPIFor associated symptoms, patient reportsnumbness of feet (and pain)but reportsno weight gainandno dizziness. For labs, patient reportslast a1c result: 6.6. For context, patient reportsseeing eye doctor regularly,checking feet regularly,taking aspirin daily,not missing doses of medications, andno side effects from medications. Hypertension F/UReported by PatientHPIFor associated symptoms, patient reportsno dizziness,no chest pain, andno shortness of breath. For lifestyle, patient reportslimiting/avoid ing salt. For medications, patient reportstaking medications as directedandno side effects from medication.pt is off of lisninoprilhct with normal home bp Back PainReported by PatientHPIFor location, patient reportspain radiating to the buttocksandpain radiating to the legs (l). For aggravating factors, patient reportsmovement/posit ioning. For associated symptoms, patient reportsnumbness of the legs/feet. For severity, patient reportsimproving. For duration, patient reportschronic. For onset/timing, patient reportsrecurrent episode.pt sees pain mxROS as noted in the HPI pt denied any new complaints other than arthritis pain. pt also had chronic hand pain due to arthritis . Seeing perforator for Blayne positive/ getting rx for RA . Gwendolyn Le MD Attn: Accounting[address] [place], [address], [facility] 05/21/2023 09:29:45 09/24/2023 text/html Diabetes F/URepo rted by PatientHPIFor associated symptoms, patient reportsnumbness of feet (and pain)but reportsno weight gainandno dizziness. For labs, patient reportslast a1c result: 7.0. For context, patient reportsseeing eye doctor regularly,checking feet regularly,taking aspirin daily,not missing doses of medications, andno side effects from medications. Hypertension F/UReported by PatientHPIFor associated symptoms, patient reportsno dizziness,no chest pain, andno shortness of breath. For lifestyle, patient reportslimiting/avoid ing salt. For medications, patient reportstaking medications as directedandno side effects from medication.pt is off of lisninoprilhct with normal home bp Back PainReported by PatientHPIFor location, patient reportspain radiating to the buttocksandpain radiating to the legs (l). For aggravating factors, patient reportsmovement/posit ioning. For associated symptoms, patient reportsnumbness of the legs/feet. For severity, patient reportsimproving. For duration, patient reportschronic. For onset/timing, patient reportsrecurrent episode.pt sees pain mxROS as noted in the HPI pt denied any new complaints other than arthritis pain. pt also had chronic hand pain due to arthritis . Seeing perforator for Blayne positive/ getting rx for RA . DANETTE Narvaez, [place] - [facility] 09/24/2023 10:34:45 02/04/2024 text/html Diabetes F/URepo rted by PatientHPIFor associated symptoms, patient reportsnumbness of feet (and pain)but reportsno weight gainandno dizziness. For labs, patient reportslast a1c result: 6.8. For context, patient reportsseeing eye doctor regularly,checking feet regularly,taking aspirin daily,not missing doses of medications, andno side effects from medications. Hypertension F/UReported by PatientHPIFor associated symptoms, patient reportsno dizziness,no chest pain, andno shortness of breath. For lifestyle, patient reportslimiting/avoid ing salt. For medications, patient reportstaking medications as directedandno side effects from medication.pt is off of lisninoprilhct with normal home bpROS as noted in the HPI pt denied any new complaints other than arthritis pain. pt also had chronic hand pain due to arthritis . Seeing perforator for Blayne positive/ getting rx for RA . Gwendolyn Le MD Attn: Accounting[address] [facility], [place], [address], [facility] 02/04/2024 11:25:51 05/05/2024 text/html Diabetes F/URepo rted by PatientHPIFor associated symptoms, patient reportsnumbness of feet (and pain)but reportsno weight gainandno dizziness. For labs, patient reportslast a1c result: 7.0. For context, patient reportsseeing eye doctor regularly,checking feet regularly,taking aspirin daily,not missing doses of medications, andno side effects from medications. Hypertension F/UReported by PatientHPIFor associated symptoms, patient reportsno dizziness,no chest pain, andno shortness of breath. For lifestyle, patient reportslimiting/avoid ing salt. For medications, patient reportstaking medications as directedandno side effects from medication.pt is off of lisninoprilhct with normal home bpROS as noted in the HPI pt denied any new complaints other than arthritis pain. pt also had chronic hand pain due to arthritis . Seeing perforator for Blayne positive/ getting rx for RA . Gwendolyn Le MD Attn: Accounting[address] [place], [address], [facility] 05/05/2024 12:34:32 OBGyn Episode No OBEpisode recorded.
== END 2025-01-11 13:39 | disposition home or self-care (01) ==
PROVIDERS: Emergency Provider Nurse Practitioner; PCP Internal Medicine
DX: J32.9 Chronic sinusitis, unspecified (principal); I10 Essential (primary) hypertension; J45.909 Unspecified asthma, uncomplicated; M34.9 Systemic sclerosis, unspecified; M79.7 Fibromyalgia; M06.9 Rheumatoid arthritis, unspecified; M17.0 Bilateral primary osteoarthritis of knee; M81.0 Age-related osteoporosis without current pathological fracture; Z85.3 Personal history of malignant neoplasm of breast
CPT/HCPCS: 99213; G0463